=== PATIENT | female | born 1960 | race Caucasian/White ===

== ENCOUNTER 2017-11-29 07:00 | Inpatient (IN) | payer BC ==
[~2017-11-29 07:00] MED LIST: ISOVUE-370 76%-LOCM 1 ML ONE; Iopamidol 370 76% 50 ML VIAL FS ONE
[2017-11-29] MEDS ORDERED: Morphine 4 MG/ML VIAL ONE (07:28)
[2017-11-29] MEDS ORDERED: metroNIDAZOLE 500 MG/100 ML BAG ONE (07:28)
[2017-11-29] MEDS ORDERED: Ondansetron HCl/PF 4 MG/2 ML Vial ONE (07:32)
[2017-11-29 08:02] LABS: #Eosinphils 0.1 thou/uL (0.0-0.7); #Lymphocytes 2.3 thou/uL (1.20-3.40); #Monocytes 0.9 thou/uL (0.11-0.59); #Neutrophils 9.4 thou/uL (1.40-6.50); %Basophils 0.3 % (0.0-1.0); %Eosinophils 0.9 % (0.0-10.0); %Monocytes 6.8 % (0.0-10.0); Hemoglobin 15.6 g/dL (12.0-16.0); Mean Corpuscular HGB CONC 34.2 g/dL (32.0-36.0); Mean Corpuscular Hemoglobin 35.1 pg (27.0-31.0); Mean Platelet Volume 6.3 fL (7.4-10.4); Platelet Count 389 thou/uL (130-400); Red Blood Cell (RBC) Count 4.44 mill/uL (4.20-5.40); White Blood Cell (WBC) Count 12.7 thou/uL (4.8-10.8)
[2017-11-29 08:24] LABS: ALT (SGPT) 10 U/L (8-55); AST (SGOT) 13 U/L (5-34); Albumin 4.3 g/dL (3.5-5.0); Alkaline Phosphatase 93 U/L (40-150); Anion Gap 17 mmol/L (10-20); BUN (Urea Nitrogen) 11 mg/dL (9.8-20.1); Bilirubin, Total 0.5 mg/dL (0.2-1.2); Calc. Creatinine Clearance 0 mL/min (70-130); Calcium 10.2 mg/dL (7.8-10.44); Carbon Dioxide 21 mmol/L (22-29); Chloride 104 mmol/L (98-107); Estimated GFR-MDRD 89; Globulin 3.3 g/dL (2.4-3.5); Glucose 119 mg/dL (70-105); Lipase 18 U/L (8-78); Potassium 4.5 mmol/L (3.5-5.1); Protein, Total 7.6 g/dL (6.0-8.3); Sodium 137 mmol/L (136-145)
[2017-11-29 09:03] LABS: Bilirubin Negative (Negative); Blood, Urine Negative (Negative); Clarity CLEAR (Clear); Glucose, Urine (Dipstick) Negative (Negative); Leukocyte Trace (Negative); Nitrite Negative (Negative); Protein, Urine (Dipstick) Negative (Neg-Trace); Specific Gravity, Urine 1.026 (1.002-1.036); Urobilinogen 0.2 mg/dL (0.2-1.0)
[2017-11-29 09:08] LABS: Bacteria/HPF None Seen HPF (None Seen); Hyaline Casts/LPF 0-3 HYALINE CAST LPF (0-3 Hyaline); Pathc Cast-AUWi Flag 0.13 (0-2.49); RBC/HPF 0-3 HPF (0-3); Squamous Epithelial 0-3 HPF (0-3); WBC/HPF None Seen HPF (0-3)
--- NOTE | 2017-11-29 10:11 | CT ---
CT ABDOMEN AND PELVIS WITH ORAL AND IV CONTRAST: HISTORY: This is a 57-year-old female with abdominal pain which has worsened over the last few days. Left low er quadrant pain. FINDINGS: The lung bases are clear. The liver demonstrates decreased attenuation compared to the spleen consis tent with fatty infiltration. No hepatic mass is seen. The spleen, pancreas, adrenal glands, and ri ght kidney are normal. A small low-density lesion in the left kidney is likely a cyst. No calcified gallstones are seen. No lymphadenopathy is identified. The small bowel loops are not abnormally dilated. There is sigmoid diverticulosis. There is thicken ing of the wall of the sigmoid colon with adjacent air fluid collection measuring 3.5 x 2 x 4 cm and a smaller 1.5 cm fluid collection in the inferior left pelvis. These findings are consistent with di verticular abscesses. The patient is post hysterectomy. A tiny amount of free fluid is seen in the pelvis. There are vascular calcifications without evidence of aneurysmal dilatation of the abdominal aorta. There are degenerative changes in the spine. IMPRESSION: Sigmoid diverticulitis with abscess formation, not amenable to percutaneous drainage. Discussed over the telephone with ER physician, Dr. Bladimir Valenzuela, at 9:45 a.m. POS: [facility]
[2017-11-29] MEDS ORDERED: Ketorolac Tromethamine 30 MG/ML VIAL ONE (11:06)
[2017-11-29] MEDS ORDERED: Ondansetron HCl/PF 4 MG/2 ML Vial IVP PRN (14:27)
[2017-11-29] MEDS ORDERED: Ondansetron ODT 4 MG TAB SL PRN (14:27)
[2017-11-29] MEDS ORDERED: Dextrose 5 %-0.45 % NaCl 1,000 ML IV SCH (14:30)
[2017-11-29] MEDS ORDERED: Acetaminophen 325 MG TAB PO PRN (14:40)
[2017-11-29] MEDS ORDERED: Acetaminophen 650 MG Suppository PR PRN (14:40)
[2017-11-29] MEDS ORDERED: Ondansetron ODT 4 MG TAB PO PRN (14:40)
[2017-11-29] MEDS ORDERED: Bisacodyl 5 MG TAB PO PRN (14:40)
[2017-11-29] MEDS ORDERED: Loperamide HCl 2 MG CAP PO PRN (14:40)
[2017-11-29 14:41] VITALS: BMI 25.5
[2017-11-29] MEDS: Sodium Chloride 0.9% 1,000 ML IV SCH (15:17)
[2017-11-29] MEDS ORDERED: Morphine 4 MG/ML VIAL SLOW IVP PRN (15:45)
--- NOTE | 2017-11-29 16:00 | CON ---
DATE OF CONSULTATION: 11/29/2017 REQUESTING PHYSICIAN: Dr. Bladimir Valenzuela. HISTORY OF PRESENT ILLNESS: A 57-year-old woman with a known history of diverticulosis col i, presented to the Emergency Department. The patient reports recurrent lower abdominal pain since 11/19/2017. She has had previous flareups o f acute diverticulitis, managed conservatively with antibiotics until resolution. Her last hospital admission for acute diverticulitis was in 04/2017. At this time, however, the pain was quite severe and has been unrelenting despite oral analgesics. P atient denies any fevers or chills. She reports passing flatus and having bowel movements, the last bowel movement being this morning. She passed flatus about an hour ago. Denies any nausea or vomiting. PAST MEDICAL HISTORY: Significant for diverticulosis coli, recurrent acute diverticulitis and hyperl ipidemia. PAST SURGICAL HISTORY: Pertinent for hysterectomy and repair of right rotator cuff injury. SOCIAL HISTORY: Patient is . She lives at home with her . She admits to smoking abou t half to 3/4 pack of cigarettes per day and has done so for over 20 years. She admits to occasional intake of ethanol in moderate amounts. She denies any illicit drug abuse. PREHOSPITAL MEDICATIONS: Includes some antihypertensives and cholesterol lowering drugs. She does n ot recall specifics. ALLERGIES: PENICILLIN and SULFA DRUGS. FAMILY HISTORY: Pertinent for diverticulosis coli in her grandmother. She denies any family history of heart disease or diabetes mellitus or cancer. Her last complete colonoscopy was approximately two 2 years ago. She had an attempted colonoscopy last year, which was incomplete due to incomplete bowel prep. REVIEW OF SYSTEMS: A 10-point review of system is essentially unremarkable except for as stated in p ast medical history and chief complaint. PHYSICAL EXAMINATION: GENERAL: This reveals a 57-year-old normally developed woman who is otherwise coherent and interacti ve and appears stated age. The patient is alert and oriented x3, appears to be in moderate acute dis tress secondary to abdominal pain. VITAL SIGNS: Includes blood pressure 137/105, pulse 100, respiratory rate 18, temperature 97.6 degre es Fahrenheit and oxygen saturation 99% on room air. HEENT: Reveals normocephalic and atraumatic. Pupils are equal, round and reactive to light and acco mmodation. Extraocular muscles are intact bilaterally. She has no sclerae icterus present. HEART: Reveals regular rate and rhythm. No murmurs or gallops auscultated. LUNGS: Clear to auscultation bilaterally. Her breathing is regular and unlabored. ABDOMEN: Soft and nondistended. She has moderate tenderness to palpation in the infraumbilical lowe r abdomen. She has mild rebound tenderness present. Liver and spleen are nonpalpable below costal m argins. Bowel sounds in all four quadrants appear normoactive. EXTREMITIES: Reveals 2+ radial and pedal pulses bilaterally. No ankle edema is present. NEUROLOGIC: Reveals no focal deficits present. PERTINENT LABORATORY AND IMAGING FINDINGS: Today includes CBC with 12,700 white blood cells, hemoglo bin 15.6, hematocrit is 45.6 and platelet count is 389,000. Metabolic profile: Sodium 137, potassium is 4.5, chloride is 104, bicarbonate is 21, BUN is 11, crea tinine is 0.68, glucose is 119. Total bilirubin is 0.5, AST and ALT normal at 13 and 10 respectively . Serum lipase is normal at 18. I have personally reviewed the CT scan of the abdomen and pelvis, which reveals diverticulosis coli i nvolving the sigmoid colon. There is also a significant amount of fat stranding involving the mesent lyle of the left colon. There is 4 x 2 x 4 cm fluid collection in the inferior left pelvis with adherent small bowel in the v icinity. No pneumoperitoneum is evident. IMPRESSIONS: 1. Acute diverticulitis with diverticular abscess. 2. History of essential hypertension. RECOMMENDATIONS: 1. Broad-spectrum antibiotic therapy. 2. I have discussed this with the radiologist and it appears that the abscess is not amenable to per cutaneous drainage due to its location. 3. I suspect that this could be successfully treated with IV antibiotic therapy, which can be conver herman to oral treatment once the abdominal pain resolves. There is no acute surgical indication for th is patient at this time. The patient will certainly need an elective sigmoidectomy with primary anas tomosis once the acute diverticulitis has resolved. It will be prudent, however, to obtain a preoper ative colonoscopy if it is possible. 4. I have advised the patient and her that if conservative management fails, this patient mi ght require urgent trip to the operating room for sigmoidectomy with end colostomy. This will be tem porary. The patient and have indicated understanding of information given. I have answered all their questions. Thank you again, Dr. Valenzuela, for allowing me the opportunity to participate in the care of this patient .
[2017-11-29] MEDS: Ketorolac Tromethamine 30 MG/ML VIAL IVP PRN (17:02)
[2017-11-29] MEDS: D5 1/2 NS w/10 mEq KCl 1,000 ML/1,000 ML BAG IV SCH (17:03)
[2017-11-29] MEDS ORDERED: metroNIDAZOLE 500 MG in Premix Bag 1 BAG IVPB SCH (18:00)
[2017-11-29] MEDS: metroNIDAZOLE 500 MG in Premix Bag 1 BAG IVPB SCH (18:20)
[2017-11-29] MEDS: Famotidine 20 MG TAB PO SCH (21:23)
--- NOTE | 2017-11-29 22:17 | PRG ---
DATE OF SERVICE: 11/29/2017 SUBJECTIVE: This is a 57-year-old female with diverticulitis that we were consulted on earlier in . Patient is currently receiving IV antibiotics. She states she has intermittent abdominal nayla n, which is tolerable at this time and ordered pain meds are helping. She vocalized no other complai nts this evening. OBJECTIVE: VITAL SIGNS: Reviewed and stable. GENERAL: The patient is afebrile. Resting in bed, in no acute distress. LUNGS: Breathing is nonlabored. ABDOMEN: Soft without signs of peritonitis or rigidity. ASSESSMENT AND PLAN: As documented in consultation note. Continue care as ordered. Continue to mon itor.
[2017-11-30] MEDS: Ketorolac Tromethamine 30 MG/ML VIAL IVP PRN ×2 (00:50→07:00)
[2017-11-30] MEDS: Sodium Chloride 0.9% 1,000 ML IV SCH ×3 (02:47→23:53)
[2017-11-30] MEDS: metroNIDAZOLE 500 MG in Premix Bag 1 BAG IVPB SCH ×3 (02:51→17:37)
[2017-11-30] MEDS: D5 1/2 NS w/10 mEq KCl 1,000 ML/1,000 ML BAG IV SCH ×3 (06:04→18:56)
--- NOTE | 2017-11-30 06:13 | HP ---
PRIMARY CARE PHYSICIAN: Previously Dr. Sun. PRIMARY RIVER DRIVER: Dr. Pittman. CHIEF COMPLAINT: Abdominal pain. HISTORY OF PRESENT ILLNESS: This is a 57-year-old white female with a known history of recurrent div erticulitis, who was recommended to see surgery and have a partial resection done to prevent recurren ce; however, she has not done this yet. Her last episode was in the summer of this year. The patien t started to have upset stomach and a little bit of bloating in her abdomen around [place], which o ften heralds a diverticulitis episode. This moved to the left lower quadrant and became progressivel y worse. Eventually, she was able to control the pain with [id number] medications and so she c kristofer to the emergency room. In the ER, she had a CT of the abdomen and pelvis with and without contra st showing acute diverticulitis with abscess formation measuring 3.5 x 2 x 4 cm next the sigmoid dive rticulitis. This was not amenable to percutaneous drainage. Dr. Chaney was consulted in the emergen cy room and he evaluated the patient and recommended IV antibiotics, bowel rest, n.p.o. except for ic e chips and meds only. PAST MEDICAL HISTORY: 1. Recurrent sigmoid diverticulitis. 2. Hyperlipidemia. PAST SURGICAL HISTORY: 1. Hysterectomy. 2. Right rotator cuff surgery. SOCIAL HISTORY: She smokes 1 pack per day for the last 30 years. She drinks a small amount of alcoh ol daily, less than 5 drinks per day. No illicit drug use. She lives with her . FAMILY HISTORY: Diverticulitis in grandmother. ALLERGIES: 1. PENICILLIN. 2. SULFA ANTIBIOTICS. 3. ADHESIVE TAPE. CURRENT MEDICATIONS: 1. Probiotic 1 cap once a day. 2. Umce-sbg-zczkvtk pain medicine. REVIEW OF SYSTEMS: Constitutional: No fevers or chills. Eyes: No double vision or blurred vision. ENT: No congestion, drainage, or sore throat. Cardiovascular: No chest pain. No palpitations or racing heart. Pulmonary: No coughing, wheezing, or shortness of breath. Gastrointestinal: See HP I. No nausea or vomiting. No diarrhea. She had a normal bowel movement without blood or mucus yusuf ier today. Genitourinary: No dysuria or hematuria. She does feel pressure when she urinates since, this frequently happens when she has diverticulitis. Musculoskeletal: She has had some left-sided back pain along with left lower quadrant pain. No other muscle aches or joint pains. Skin: No rash es or lesions. Neurologic: No numbness, tingling, or focal weakness. PHYSICAL EXAMINATION: GENERAL: This is a well-developed overweight white female. VITAL SIGNS: Blood pressure 116/70, temperature 97.2, pulse 83, respirations 16, O2 sat 97% on room air. HEENT: Pupils are equal, round, and reactive to light. Extraocular movements are intact. Oropharyn x is clear without lesions, erythema, or exudate. No drying of the mucous membranes. NECK: Supple. No lymphadenopathy. No thyroid nodules or enlargement. No JVD. HEART: Regular rate and rhythm. No murmurs, rubs, or gallops. LUNGS: Clear to auscultation bilaterally. No wheezes, crackles, or rhonchi. ABDOMEN: Soft, tender to palpation in the left lower quadrant with some fullness in the area. No si gnificant guarding or rebound tenderness. She also has some mild tenderness to palpation in the left lumbar musculature, but none on the flank. Normoactive bowel sounds. No hepatosplenomegaly or othe r masses. EXTREMITIES: No clubbing, cyanosis, or edema. SKIN: No rashes or other lesions. NEUROLOGIC: Intact strength in all extremities and she has no facial droop. LABORATORY DATA: White blood cell count 12.7 with 74% neutrophils. Normal hemoglobin and hematocrit . Complete metabolic panel was notable only for carbon dioxide of 21 and glucose of 119. Urinalysis had trace leukocyte esterase, otherwise negative, no bacteria, no wbc's. IMAGING: Abdomen and pelvis CT as above. ASSESSMENT: 1. Acute diverticulitis complicated by abscess formation. We will put patient on IV Cipro and metro nidazole. We will give her p.r.n. Imodium for diarrhea which is a common side effect for her with millie antibiotics. Appreciate Dr. Chaney's assistance with this case and hopefully she will improve wit h the IV antibiotics. We will monitor closely and make sure she does not have evidence of progressio n or peritonitis requiring urgent surgery. Patient will eventually need an outpatient resection of t he bothersome part of her sigmoid. 2. Hypercholesterolemia. We will recommend patient follow up with a new primary care physician for reinstitution of treatment for her hypercholesterolemia. At this point, we will get a fasting specim en to see where is at. 3. Gastrointestinal prophylaxis. Put the patient on Pepcid twice a day. 4. Deep venous thrombosis prophylaxis. Put patient on Lovenox prophylactic dose. 5. Code Status: I did discuss this with the patient. She is a FULL CODE. Should she be incapacita herman, her will be her medical power of meat smoker. His name is Eli Cleaning.
[2017-11-30 06:43] LABS: #Eosinphils 0.1 thou/uL (0.0-0.7); #Lymphocytes 1.7 thou/uL (1.20-3.40); #Monocytes 0.9 thou/uL (0.11-0.59); #Neutrophils 6.1 thou/uL (1.40-6.50); %Basophils 0.1 % (0.0-1.0); %Eosinophils 0.8 % (0.0-10.0); %Monocytes 10.1 % (0.0-10.0); Hemoglobin 11.5 g/dL (12.0-16.0); Mean Corpuscular HGB CONC 33.8 g/dL (32.0-36.0); Mean Platelet Volume 6.7 fL (7.4-10.4); Platelet Count 300 thou/uL (130-400); RBC Distribution Width 11.8 % (11.5-14.5); Red Blood Cell (RBC) Count 3.27 mill/uL (4.20-5.40); White Blood Cell (WBC) Count 8.8 thou/uL (4.8-10.8)
[2017-11-30 06:56] LABS: Anion Gap 10 mmol/L (10-20); BUN (Urea Nitrogen) 8 mg/dL (9.8-20.1); Calc. Creatinine Clearance 91 mL/min (70-130); Calcium 8.9 mg/dL (7.8-10.44); Carbon Dioxide 23 mmol/L (22-29); Cardiac Risk 5.4 (Less than 4.5); Chloride 107 mmol/L (98-107); Cholesterol 178 mg/dl (< 200 Desired); Estimated GFR-MDRD Greater than 90; Glucose 109 mg/dL (70-105); HDL Cholesterol 33 mg/dL (>60 Neg Risk); LDL Cholesterol, Calculated 121 mg/dL; Potassium 4.1 mmol/L (3.5-5.1); Sodium 136 mmol/L (136-145); Triglycerides 122 mg/dL (Less than 150)
[2017-11-30] MEDS: Ondansetron HCl/PF 4 MG/2 ML Vial IVP PRN ×2 (07:03→20:12)
[2017-11-30] MEDS: Famotidine 20 MG TAB PO SCH ×2 (09:11→21:28)
[2017-11-30] MEDS: Enoxaparin Sodium 40 MG/0.4 ML SYRINGE SC SCH (09:11)
[2017-11-30] MEDS ORDERED: Diazepam 2 MG TAB PO PRN (10:01)
[2017-11-30] MEDS: HYDROcodone/Acetaminophen 7.5/325 mg Tablet PO SCH ×3 (11:05→23:51)
[2017-11-30] MEDS: Diazepam 2 MG TAB PO SCH ×2 (14:37→21:28)
--- NOTE | 2017-11-30 18:36 | PDOC.PN ---
- Subjective Encounter Start Date: 11/30/17 Encounter Start Time: 14:30 Patient seen and examined. Abd pain improving. No overnight events - Objective Resuscitation Status: Resuscitation Status FULL:Full Resuscitation MAR Reviewed: Yes Vital Signs & Weight: Vital Signs (12 hours) Temp Pulse Resp BP Pulse Ox 11/30/17 15:22 98.7 F 86 14 120/76 92 L 11/30/17 10:55 97.6 F 87 16 123/74 99 11/30/17 08:00 97.9 F 78 14 98 11/30/17 07:52 97.9 F 78 14 100/64 98 Weight Weight 131 lb I&O: 11/29/17 11/30/17 12/01/17 06:59 06:59 06:59 Intake Total 600 Balance 600 Result Diagrams: 11/30/17 05:40 11/30/17 05:40 Phys Exam - Physical Examination Constitutional: NAD Respiratory: no wheezing, no rales, no rhonchi, clear to auscultation bilateral Cardiovascular: RRR, no rub no heaves/pulsations Gastrointestinal: soft, no distention, positive bowel sounds mild RLQ tend, no rebound Musculoskeletal: no edema Neurological: non-focal, moves all 4 limbs Psychiatric: A&O x 3 Dx/Plan - Plan plan discussed w/ family, continue antibiotics, out of bed/ambulate, DVT proph w /lovenox, DVT proph w/SCDs IMPRESSION: 1. Sepsis due to acute Sigmoid Diverticulitis with Abscess 2. HLD 3. Tobacco dependence - counselled. 4. Chronic Alcohol use PLAN: * Cont Atbx - Cipro/Flagyl * Gen surg following * Cont IVF * NPO * AM labs * Walking program * Pain control with IV Morphine Review of Systems - Review of Systems Respiratory: negative: Cough, Dry, Shortness of Breath, Hemoptysis, SOB with Excertion, Pleuritic Pain, Sputum, Wheezing Cardiovascular: negative: chest pain, palpitations, orthopnea, paroxysmal nocturnal dyspnea, edema, light headedness - Medications/Allergies Allergies/Adverse Reactions: Allergies Allergy/AdvReac Type Severity Reaction Status Date / Time adhesive tape Allergy Verified 05/23/17 23:46 Penicillins Allergy Verified 05/23/17 23:46 Sulfa (Sulfonamide Allergy Verified 05/23/17 23:46 Antibiotics) Medications: Current Medications Acetaminophen (Tylenol) 650 mg PO Q4H PRN PRN Reason: Headache/Fever or Pain Last Admin: 11/30/17 04:48 Dose: 650 mg Hydrocodone Bitart/Acetaminophen ([place] 7.5/325) 1 tab PO Q6HR [facility] Last Admin: 11/30/17 17:38 Dose: 1 tab Hydrocodone Bitart/Acetaminophen ([place] 5/325) 1 tab PO Q4H PRN PRN Reason: Moderate Pain (4-6) Bisacodyl (Dulcolax) 10 mg PO DAILYPRN PRN PRN Reason: Constipation Diazepam (Valium) 2 mg PO Q8HR [facility] Stop: 12/01/17 06:01 Last Admin: 11/30/17 14:37 Dose: 2 mg Enoxaparin Sodium (Lovenox) 40 mg SC 0900 [facility] Last Admin: 11/30/17 09:11 Dose: Not Given Famotidine (Pepcid) 20 mg PO BID [facility] Last Admin: 11/30/17 09:11 Dose: 20 mg Ciprofloxacin/Dextrose 400 mg/ (Device) 200 mls @ 200 mls/hr IVPB 0300,1500 [facility] Last Admin: 11/30/17 14:37 Dose: 200 mls Metronidazole 500 mg/ Device 100 mls @ 100 mls/hr IVPB 0200,1000,1800 [facility] Last Admin: 11/30/17 17:37 Dose: 100 mls Sodium Chloride (Normal Saline 0.9%) 1,000 mls @ 100 mls/hr IV .Q10H [facility] Last Admin: 11/30/17 09:57 Dose: Not Given Potassium Chloride/Dextrose/Sod Cl (D5 1/2 Ns W/10 Meq Kcl) 1,000 ml in 1,000 mls @ 100 mls/hr IV .Q10H [facility] Last Admin: 11/30/17 11:45 Dose: Not Given Ketorolac Tromethamine (Toradol) 15 mg IVP Q6H PRN PRN Reason: Pain Stop: 12/04/17 16:27 Last Admin: 11/30/17 07:00 Dose: 15 mg Loperamide HCl (Imodium) 2 mg PO PRN PRN PRN Reason: Diarrhea/Loose Stools Morphine Sulfate (Morphine) 4 mg SLOW IVP Q4H PRN PRN Reason: Pain Ondansetron HCl (Zofran Odt) 4 mg PO Q6H PRN PRN Reason: Nausea/Vomiting Ondansetron HCl (Zofran) 4 mg IVP Q6H PRN PRN Reason: Nausea/Vomiting Last Admin: 11/30/17 07:03 Dose: 4 mg
--- NOTE | 2017-11-30 20:52 | PRG ---
DATE OF SERVICE: 11/30/2017 The patient this morning is doing "okay." She still reports pain 06/01, which is unchanged from her ad mission. She is though up and ambulatory. She still remains n.p.o. and afebrile. Her vital signs a re stable. She states that her pain is controlled. Her abdomen is soft, flat with no peritoneal sig ns. We will continue this current nonoperative course with IV antibiotics. Once her bowel function returns, we will start her on clear liquid diet. We will reexamine the patient in the morning. The patient was examined by Dr. Chaney this morning during rounds.
--- NOTE | 2017-12-01 02:18 | PRG ---
DATE OF SERVICE: 11/30/2017. SUBJECTIVE: Zeeshan Cleaning is a 57-year-old female that is a surgical consultation for diverticulitis. Patient has been ambulatory today. This evening, she states her pain is marginally improved compare d with previous and that Valium administered by Dr. Chaney earlier today has helped. OBJECTIVE: VITAL SIGNS: Reviewed and stable. The patient is afebrile. She is resting in bed, although I have seen her ambulating in the [place]. Breathing is nonlabored. She is on room air. ABDOMEN: Soft without signs of peritonitis. ASSESSMENT AND PLAN: As documented in daily progress note. Continue care as ordered. Continue to m onitor.
[2017-12-01] MEDS: metroNIDAZOLE 500 MG in Premix Bag 1 BAG IVPB SCH ×3 (02:30→17:22)
[2017-12-01] MEDS: Ondansetron HCl/PF 4 MG/2 ML Vial IVP PRN ×3 (03:00→17:23)
[2017-12-01] MEDS: Diazepam 2 MG TAB PO SCH (05:44)
[2017-12-01] MEDS: HYDROcodone/Acetaminophen 5/325 mg Tablet PO PRN ×2 (05:46→20:45)
[2017-12-01] MEDS: HYDROcodone/Acetaminophen 7.5/325 mg Tablet PO SCH ×3 (05:49→17:24)
[2017-12-01] MEDS: Sodium Chloride 0.9% 1,000 ML IV SCH ×2 (05:52→15:13)
[2017-12-01 06:42] LABS: #Lymphocytes 1.9 thou/uL (1.20-3.40); #Monocytes 0.9 thou/uL (0.11-0.59); #Neutrophils 5.3 thou/uL (1.40-6.50); %Basophils 0.2 % (0.0-1.0); %Eosinophils 0.5 % (0.0-10.0); %Lymphocytes 22.9 % (21.0-51.0); %Monocytes 11.3 % (0.0-10.0); %Neutrophils 65.1 % (42.0-75.0); Hemoglobin 11.6 g/dL (12.0-16.0); Mean Corpuscular HGB CONC 32.5 g/dL (32.0-36.0); Mean Corpuscular Hemoglobin 34.1 pg (27.0-31.0); Mean Platelet Volume 6.7 fL (7.4-10.4); Platelet Count 314 thou/uL (130-400); Red Blood Cell (RBC) Count 3.39 mill/uL (4.20-5.40); White Blood Cell (WBC) Count 8.1 thou/uL (4.8-10.8)
[2017-12-01 07:27] LABS: ALT (SGPT) 7 U/L (8-55); AST (SGOT) 10 U/L (5-34); Albumin 3.3 g/dL (3.5-5.0); Alkaline Phosphatase 68 U/L (40-150); Anion Gap 10 mmol/L (10-20); BUN (Urea Nitrogen) 5 mg/dL (9.8-20.1); Bilirubin, Total 0.3 mg/dL (0.2-1.2); Calc. Creatinine Clearance 84 mL/min (70-130); Calcium 8.9 mg/dL (7.8-10.44); Carbon Dioxide 24 mmol/L (22-29); Chloride 108 mmol/L (98-107); Estimated GFR-MDRD 88; Globulin 2.2 g/dL (2.4-3.5); Glucose 99 mg/dL (70-105); Magnesium 1.7 mg/dL (1.6-2.6); Phosphorus 3.1 mg/dL (2.3-4.7); Potassium 4.2 mmol/L (3.5-5.1); Protein, Total 5.5 g/dL (6.0-8.3); Sodium 138 mmol/L (136-145)
[2017-12-01] MEDS: D5 1/2 NS w/10 mEq KCl 1,000 ML/1,000 ML BAG IV SCH ×2 (07:56→17:23)
[2017-12-01] MEDS: Famotidine 20 MG TAB PO SCH ×2 (08:55→20:46)
[2017-12-01] MEDS: Enoxaparin Sodium 40 MG/0.4 ML SYRINGE SC SCH (08:55)
[2017-12-01] MEDS: Diazepam 2 MG TAB PO PRN ×2 (12:07→20:45)
--- NOTE | 2017-12-01 13:04 | PDOC.PN ---
- Subjective Encounter Start Date: 12/01/17 Encounter Start Time: 12:00 Patient seen and examined. Had BM last night. Still has abd pain. NPO. No overnight events - Objective Resuscitation Status: Resuscitation Status FULL:Full Resuscitation MAR Reviewed: Yes Vital Signs & Weight: Vital Signs (12 hours) Temp Pulse Resp BP Pulse Ox 12/01/17 11:40 97.8 F 88 14 118/76 99 12/01/17 07:45 98.2 F 84 18 97/61 99 12/01/17 04:00 98.3 F 85 20 98/63 99 Weight Weight 131 lb I&O: 11/30/17 12/01/17 12/02/17 06:59 06:59 06:59 Intake Total 600 2880 Balance 600 2880 Result Diagrams: 12/01/17 05:27 12/01/17 05:27 Phys Exam - Physical Examination Constitutional: NAD Respiratory: no wheezing, no rhonchi Cardiovascular: RRR, no rub Gastrointestinal: soft, positive bowel sounds LLQ tend +, No guarding/rigidity Neurological: moves all 4 limbs Dx/Plan - Plan DVT proph w/lovenox, DVT proph w/SCDs IMPRESSION: 1. Sepsis due to acute Sigmoid Diverticulitis with Abscess - on Cipro/Flagyl, Gen surg following 2. HLD 3. Tobacco dependence - counselled. 4. Chronic Alcohol use PLAN: * Cont Atbx * Cont IVF * NPO * Walking program * Pain control with IV Morphine/[place] Review of Systems - Review of Systems Respiratory: negative: Cough, Dry, Shortness of Breath, Hemoptysis, SOB with Excertion, Pleuritic Pain, Sputum, Wheezing Cardiovascular: negative: chest pain, palpitations, orthopnea, paroxysmal nocturnal dyspnea, edema, light headedness - Medications/Allergies Allergies/Adverse Reactions: Allergies Allergy/AdvReac Type Severity Reaction Status Date / Time adhesive tape Allergy Verified 05/23/17 23:46 Penicillins Allergy Verified 05/23/17 23:46 Sulfa (Sulfonamide Allergy Verified 05/23/17 23:46 Antibiotics) Medications: Current Medications Acetaminophen (Tylenol) 650 mg PO Q4H PRN PRN Reason: Headache/Fever or Pain Last Admin: 11/30/17 04:48 Dose: 650 mg Hydrocodone Bitart/Acetaminophen ([place] 7.5/325) 1 tab PO Q6HR [facility] Last Admin: 12/01/17 11:40 Dose: 1 tab Hydrocodone Bitart/Acetaminophen ([place] 5/325) 1 tab PO Q4H PRN PRN Reason: Moderate Pain (4-6) Last Admin: 12/01/17 05:46 Dose: 1 tab Bisacodyl (Dulcolax) 10 mg PO DAILYPRN PRN PRN Reason: Constipation Diazepam (Valium) 2 mg PO Q8H PRN PRN Reason: Anxiety Last Admin: 12/01/17 12:07 Dose: 2 mg Enoxaparin Sodium (Lovenox) 40 mg SC 0900 [facility] Last Admin: 12/01/17 08:55 Dose: 40 mg Famotidine (Pepcid) 20 mg PO BID [facility] Last Admin: 12/01/17 08:55 Dose: 20 mg Ciprofloxacin/Dextrose 400 mg/ (Device) 200 mls @ 200 mls/hr IVPB 0300,1500 [facility] Last Admin: 12/01/17 02:30 Dose: 200 mls Metronidazole 500 mg/ Device 100 mls @ 100 mls/hr IVPB 0200,1000,1800 [facility] Last Admin: 12/01/17 10:27 Dose: 100 mls Sodium Chloride (Normal Saline 0.9%) 1,000 mls @ 100 mls/hr IV .Q10H [facility] Last Admin: 12/01/17 05:52 Dose: 1,000 mls Potassium Chloride/Dextrose/Sod Cl (D5 1/2 Ns W/10 Meq Kcl) 1,000 ml in 1,000 mls @ 100 mls/hr IV .Q10H [facility] Last Admin: 12/01/17 07:56 Dose: 1,000 mls Ketorolac Tromethamine (Toradol) 15 mg IVP Q6H PRN PRN Reason: Pain Stop: 12/04/17 16:27 Last Admin: 11/30/17 07:00 Dose: 15 mg Loperamide HCl (Imodium) 2 mg PO PRN PRN PRN Reason: Diarrhea/Loose Stools Morphine Sulfate (Morphine) 4 mg SLOW IVP Q4H PRN PRN Reason: Pain Ondansetron HCl (Zofran Odt) 4 mg PO Q6H PRN PRN Reason: Nausea/Vomiting Ondansetron HCl (Zofran) 4 mg IVP Q6H PRN PRN Reason: Nausea/Vomiting Last Admin: 12/01/17 11:39 Dose: 4 mg Saccharomyces Boulardii (Florastor) 250 mg PO HS [facility]
--- NOTE | 2017-12-01 17:57 | PRG ---
DATE OF SERVICE: 12/01/2017. SUBJECTIVE: Ms. Cleaning is awake and alert today. She reports 6-7/10 abdominal pain, which is essenti ally unchanged from yesterday. She denies any nausea or vomiting. She reports passing lots of flatu s, but has not had any bowel movement. She denies any fevers or chills. She is having adequate urinary output. OBJECTIVE: VITAL SIGNS: Today includes blood pressure 98/63, pulse 85, respiratory rate 20. Maximum temperatur e in the last 24 hours is 100.1 degrees Fahrenheit, oxygen saturation is 99% on room air. HEENT: Reveals normocephalic and atraumatic. HEART: Reveals regular rate and rhythm. No murmurs or gallops auscultated. LUNGS: Clear to auscultation bilaterally. Breathing is regular and unlabored. ABDOMEN: Soft and nondistended. She has moderate tenderness to palpation with no rebound tenderness present. Liver and spleen are nonpalpable below costal margin. EXTREMITIES: Reveals 2+ radial and pedal pulses bilaterally. No ankle edema is present. NEUROLOGIC: Reveals no focal deficits present. LABORATORY DATA: Pertinent laboratory findings today includes a CBC with 8100 white blood cells, hem oglobin 11.6, hematocrit is 35.6, platelet count is 314,000. Metabolic profile: Sodium 138, potassi um is 4.2, chloride is 108, bicarbonate 24, BUN is 5, creatinine is 0.69, glucose is 99, magnesium 1. 7, phosphorus 3.1. IMPRESSION: 1. Acute diverticulitis with small diverticular abscess. The patient is hemodynamically stable. 2. Acute hypomagnesemia. PLAN: 1. Continue broad-spectrum antibiotic therapy and clear liquid diet. 2. Increase activity as tolerated. 3. Correct the abnormal electrolytes. 4. There remains no acute surgical indication for this patient at this time. 5. We will continue with conservative medical management and reserve surgical intervention, which wo uld include sigmoidectomy with end colostomy for intractability of failure with conservative manageme nt. The patient indicates understanding of the information provided to her in the presence of her .
[2017-12-01] MEDS: Saccharomyces boulardii 250 MG CAP PO SCH (20:46)
--- NOTE | 2017-12-01 23:23 | PRG ---
DATE OF SERVICE: 12/01/2017 SUBJECTIVE: This is a 57-year-old female who the surgical team is following for diverticulitis. The patient reports the pain is improved. She has been ambulatory and out of bed. OBJECTIVE: VITAL SIGNS: Reviewed and stable. GENERAL: The patient is afebrile, resting in bed in no acute distress. LUNGS: Breathing is nonlabored. ABDOMEN: Soft without signs of guarding, rigidity, or peritonitis. ASSESSMENT AND PLAN: As documented in daily progress note. Continue care as ordered. Continue to m onitor.
[2017-12-02] MEDS: HYDROcodone/Acetaminophen 7.5/325 mg Tablet PO SCH ×5 (01:00→23:55)
[2017-12-02] MEDS: metroNIDAZOLE 500 MG in Premix Bag 1 BAG IVPB SCH ×2 (01:18→10:22)
[2017-12-02] MEDS: Ondansetron HCl/PF 4 MG/2 ML Vial IVP PRN ×4 (01:22→18:01)
[2017-12-02] MEDS: D5 1/2 NS w/10 mEq KCl 1,000 ML/1,000 ML BAG IV SCH ×2 (06:30→13:10)
[2017-12-02] MEDS: Famotidine 20 MG TAB PO SCH ×2 (08:32→21:20)
[2017-12-02] MEDS: Enoxaparin Sodium 40 MG/0.4 ML SYRINGE SC SCH (08:32)
[2017-12-02] MEDS: Diazepam 2 MG TAB PO PRN ×2 (12:46→21:28)
--- NOTE | 2017-12-02 16:56 | PRG ---
DATE OF SERVICE: 12/02/2017 SUBJECTIVE: Ms. Cleaning is a 57-year-old woman admitted on 11/29/2017 with acute diverticulitis and sm all diverticular abscess. Conservative management was elected including initial bowel rest and IV an tibiotic therapy. The patient reports significant improvement with respect to her abdominal pain, wh ich is now 4/7 in contrast to 9/10 on admission. She is tolerating clear liquid diet, passing flatus , and having loose bowel movements. She ambulates with minimal difficulty. She has remained afebril e for previous 48 hours. OBJECTIVE: VITAL SIGNS: Today includes blood pressure 106/68, pulse 79, respiratory rate is 18, maximum tempera ture in the last 24 hours is 98.2 degrees Fahrenheit, oxygen saturation is 99% on room air. HEART: Reveals regular rate and rhythm. No murmurs or gallops auscultated. LUNGS: Clear to auscultation bilaterally. Breathing is regular and unlabored. ABDOMEN: Soft and nondistended. She has moderate lower abdominal tenderness to palpation with no gr oss rebound tenderness present. Bowel sounds in all four quadrants appear normoactive. IMPRESSION: Acute diverticulitis with small diverticular abscess, improving. PLAN: Continue with IV antibiotic therapy. We will switch this to oral intake effective tomorrow as long as abdominal pain is not exacerbated by eating. The patient will be seen by Dr. Casas, her primary surgeon, and outpatient antibiotic therapy will be coordinated through his care.
--- NOTE | 2017-12-02 17:28 | PDOC.PN ---
- Subjective Encounter Start Date: 12/02/17 Encounter Start Time: 17:26 Patient seen at bedside. No overnight events, states pain is much improved. Passing flatus. - Objective Resuscitation Status: Resuscitation Status FULL:Full Resuscitation Vital Signs & Weight: Vital Signs (12 hours) Temp Pulse Resp BP Pulse Ox 12/02/17 17:23 97.9 F 87 20 110/61 100 12/02/17 16:15 97.9 F 87 20 110/61 100 12/02/17 13:34 98.2 F 79 18 106/68 99 12/02/17 08:58 97.9 F 73 16 112/71 98 12/02/17 08:00 97.9 F 73 16 112/71 98 Weight Weight 131 lb I&O: 12/01/17 12/02/17 12/03/17 06:59 06:59 06:59 Intake Total 2880 1402 1442 Balance 2880 1402 1442 Result Diagrams: 12/01/17 05:27 12/01/17 05:27 Phys Exam - Physical Examination Constitutional: NAD HEENT: moist MMs Neck: no JVD Respiratory: no rales Cardiovascular: no significant murmur Gastrointestinal: soft Mild tenderness in LLQ Musculoskeletal: pulses present Neurological: moves all 4 limbs Psychiatric: A&O x 3 Dx/Plan (1) Diverticulitis large intestine Code(s): K57.32 - DVTRCLI OF LG INT W/O PERFORATION OR ABSCESS W/O BLEEDING Status: Acute Qualifiers: Diverticulitis complication: with abscess - Plan cont current plan of care, continue antibiotics, out of bed/ambulate * Continue with PO ABX (Ciprofloxacin and Flagyl) * Clear Liquid Diet ( Advance per GS) * OOB as tolerates * Will eventual need sigmoidectomy once acute episode resolves
[2017-12-02] MEDS: Ciprofloxacin 500 MG TAB PO SCH (21:19)
[2017-12-02] MEDS: metroNIDAZOLE 500 MG TAB PO SCH (21:19)
[2017-12-02] MEDS: Saccharomyces boulardii 250 MG CAP PO SCH (21:20)
[2017-12-03] MEDS: HYDROcodone/Acetaminophen 7.5/325 mg Tablet PO SCH ×2 (05:30→13:30)
[2017-12-03] MEDS: Ciprofloxacin 500 MG TAB PO SCH (06:00)
[2017-12-03] MEDS: metroNIDAZOLE 500 MG TAB PO SCH ×2 (08:05→16:28)
[2017-12-03] MEDS: Famotidine 20 MG TAB PO SCH (08:05)
[2017-12-03] MEDS: Enoxaparin Sodium 40 MG/0.4 ML SYRINGE SC SCH (08:05)
[2017-12-03] MEDS: Diazepam 2 MG TAB PO PRN (12:01)
--- NOTE | 2017-12-03 15:33 | PRG ---
DATE OF SERVICE: 12/03/2017 SUBJECTIVE: Ms. Cleaning is previously known to me, readmitted with diverticulitis with abscesses, it i s not a minimal percutaneous drainage. The patient feels much better today on IV antibiotics, tolera ting diet without difficulty. PHYSICAL EXAMINATION: VITAL SIGNS: She is afebrile. Vital signs are stable. ABDOMEN: Soft, minimally tender, nondistended, no guarding or peritoneal signs. LABORATORY DATA: Her white cell count is normal at 8. No significant left shift. Creatinine 0.69. ASSESSMENT: Active diverticulitis improved symptom robertson, but she does have non drainable abscess. PLAN: Options would be continue inpatient to the surgery which would be colectomy with ileostomy lat er on this week or continue oral antibiotics for a few weeks and then do as an outpatient. She elect ed to do it as an outpatient. She can be discharged home on either Augmentin or Levaquin, [place], an d she needs to see me back in 2 weeks in the office to plan for her elective procedure.
[2017-12-03 16:11] VITALS: BP 123/77; TEMP 98.2
--- NOTE | 2017-12-03 17:32 | DIS ---
DATE OF ADMISSION: 11/29/2017 DATE OF DISCHARGE: 12/03/2017 DISCHARGE DISPOSITION: Home. FOLLOWUP: With Gastroenterology, Dr. Pittman in 1 week. Please note that patient does not have a [facility] physician. She will follow up with Dr. Pittman. The patient was seen and examined on the day of discharge, denies any new complaints. No chest pain, shortness of breath, palpitations. DISCHARGE MEDICATIONS: Levaquin 500 mg daily for 14 days, Flagyl 500 mg three times daily for 14 day s, Zofran as needed, and probiotic daily. BRIEF HOSPITAL COURSE: The patient is a 57-year-old female with recurrent sigmoid diverticulitis, pr esented to the hospital with abdominal pain. Her workup was consistent with sepsis secondary to acut e diverticulitis with abscess formation. CT scan of the abdomen was consistent with 3.5 x 2 x 4 cm a bscess. There was also smaller 1.5 cm fluid collection in the inferior left pelvis. The patient was seen by General Surgery, Dr. Chaney and Dr. Casas. The patient was conservatively managed. Her sy mptoms have significantly improved. She will continue Levaquin and Flagyl along with probiotic. She was counseled to quit smoking. FINAL DIAGNOSES: 1. Sepsis due to acute sigmoid diverticulitis with abscess formation. On conservative management. The patient will follow up with General Surgery as outpatient for partial colectomy. 2. Hyperlipidemia. 3. Tobacco dependence. 4. Chronic alcohol use. 5. Mild metabolic acidosis on admission, resolved. 6. Chronic kidney disease stage 2. 7. Mild chronic anemia. 8. Leukocytosis on admission secondary to acute diverticulitis. Plan of care was discussed with the patient in detail. She stated understanding.
== END 2017-12-03 17:24 | disposition home or self-care (01) | DRG 391 ==
LOC: ERS 07:00 → SJJU 10:50
PROVIDERS: ADMIT Emergency Medicine; ATTEND Emergency Medicine
DX: K57.20 Diverticulitis of large intestine with perforation and abscess without bleeding (principal); A41.9 Sepsis, unspecified organism; E87.2 Acidosis; E83.42 Hypomagnesemia; F17.210 Nicotine dependence, cigarettes, uncomplicated; N18.2 Chronic kidney disease, stage 2 (mild); D64.9 Anemia, unspecified; E78.00 Pure hypercholesterolemia, unspecified
CPT/HCPCS: 36415; 74177; 80048; 80053; 80061; 81003; 81015; 83690; 83735; 84100; 85025; 90471; 90732; 96365; 96366; 96367; 96375; G0009; J0744; J1650; J1885; J1956; J2270; J2405; Q0162

== ENCOUNTER 2017-12-19 15:41 | Outpatient (CLI) | payer BC | END 2017-12-19 15:42 | disposition home or self-care (01) | LOC: BICMAMMO 15:41 | PROVIDERS: ATTEND Obstetrics & Gynecology | DX: Z12.31 Encounter for screening mammogram for malignant neoplasm of breast (principal); Z13.820 Encounter for screening for osteoporosis; M85.80 Other specified disorders of bone density and structure, unspecified site | CPT/HCPCS: 77063; 77067; 77080 ==

== ENCOUNTER 2017-12-28 12:30 | Inpatient (IN) | payer BC ==
[2018-01-03] MEDS ORDERED: Midazolam HCl 2 mg/2 ml Vial ONE (09:58)
[2018-01-03] MEDS ORDERED: Dexamethasone 4 mg/ml Vial ONE (09:58)
[2018-01-03] MEDS ORDERED: Fentanyl 100 MCG/2 ML VIAL ONE ×2 (09:58→10:04)
[2018-01-03] MEDS ORDERED: HYDROmorphone 0.5 MG/0.5 ML SYRINGE ONE ×5 (10:04→14:11)
[2018-01-03] MEDS ORDERED: metroNIDAZOLE 500 MG/100 ML BAG ONE (10:06)
[2018-01-03] MEDS ORDERED: Levofloxacin 500 mg/D5W 100 ml Premix Bag ONE (10:06)
[2018-01-03] MEDS ORDERED: Bupivacaine PF 0.5% 30 ML VIAL ONE (11:44)
[2018-01-03] MEDS ORDERED: Bupivacaine HCl 0.5%/Epinephrine 1:200,000/PF 30 ml Vial ONE (11:44)
[2018-01-03] MEDS ORDERED: Ondansetron PF 4 MG/2 ML Vial ONE (13:12)
[2018-01-03] MEDS ORDERED: Metoclopramide HCl 10 MG/2 ML VIAL ONE (13:12)
[2018-01-03] MEDS ORDERED: ePHEDrine/0.9% NaCl/PF SYRINGE 50 mg/10 ml ONE (13:12)
[2018-01-03] MEDS ORDERED: Dexamethasone 20 MG/5 ML VIAL ONE (13:12)
[2018-01-03] MEDS ORDERED: Glycopyrrolate 0.2 MG/ML 5 ML SYRINGE ONE (13:12)
[2018-01-03] MEDS ORDERED: PROPOFOL 200 MG/20 ML VIAL ONE (13:12)
[2018-01-03] MEDS ORDERED: PHENYLEPHRINE-NS 100 MCG/ML 10 ML SYRINGE ONE (13:12)
[2018-01-03] MEDS ORDERED: Lidocaine 1% PF 5 ML VIAL ONE (13:12)
[2018-01-03] MEDS ORDERED: Ondansetron HCl/PF 4 MG/2 ML Vial IVP PRN (13:21)
[2018-01-03] MEDS ORDERED: Promethazine HCl 25 MG/ML VIAL SLOW IVP PRN (13:21)
[2018-01-03] MEDS ORDERED: HYDROmorphone 2 MG/ML VIAL SLOW IVP PRN (13:21)
[2018-01-03] MEDS ORDERED: Ketorolac Tromethamine 30 MG/ML VIAL IVP PRN (13:21)
[2018-01-03] MEDS ORDERED: Promethazine HCl 25 MG/ML VIAL IM PRN ×2 (13:21→15:12)
[2018-01-03] MEDS ORDERED: Ketorolac Tromethamine 30 MG/ML VIAL ONE (13:33)
[2018-01-03] MEDS ORDERED: D5 1/2 NS w/20 mEq KCL 1,000 ML ONE (14:39)
[2018-01-03] MEDS ORDERED: hydrALAZINE 20 MG/ML VIAL SLOW IVP PRN (15:12)
[2018-01-03] MEDS ORDERED: Ondansetron PF 4 MG/2 ML Vial IVP PRN (15:12)
[2018-01-03] MEDS ORDERED: Fentanyl 100 MCG/2 ML VIAL SLOW IVP PRN (15:12)
[2018-01-03] MEDS: D5 1/2 NS w/20 mEq KCL 1,000 ML IV SCH (16:45)
[2018-01-03] MEDS: Fentanyl 100 MCG/2 ML VIAL SLOW IVP PRN ×2 (16:48→21:05)
[2018-01-03] MEDS: metroNIDAZOLE 500 MG in Premix Bag 1 BAG IVPB SCH ×2 (16:49→21:12)
[2018-01-03] MEDS: Acetaminophen 1,000 MG in Premix Bag 1 BAG IVPB SCH (18:39)
[2018-01-03 20:07] VITALS: BMI 23.8
[2018-01-03] MEDS: Ketorolac Tromethamine 30 MG/ML VIAL IVP PRN (20:10)
[2018-01-03] MEDS ORDERED: FLU VACC QS2017-18 36 mo. & older 0.5 ML SYRINGE IM ONE (20:45)
[2018-01-03] MEDS: Famotidine 20 MG TAB PO SCH (21:11)
[2018-01-03] MEDS: Enoxaparin Sodium 40 MG/0.4 ML SYRINGE SC SCH (21:11)
[2018-01-04] MEDS: Famotidine/PF 20 mg/2ml Vial SLOW IVP SCH ×3 (00:36→20:14)
[2018-01-04] MEDS: Acetaminophen 1,000 MG in Premix Bag 1 BAG IVPB SCH ×3 (00:38→12:21)
[2018-01-04] MEDS: metroNIDAZOLE 500 MG in Premix Bag 1 BAG IVPB SCH (04:57)
[2018-01-04 05:29] LABS: #Lymphocytes 1.2 thou/uL (1.20-3.40); #Neutrophils 11.8 thou/uL (1.40-6.50); %Lymphocytes 8.4 % (21.0-51.0); %Monocytes 6.9 % (0.0-10.0); %Neutrophils 84.6 % (42.0-75.0); Hemoglobin 9.7 g/dL (12.0-16.0); Mean Corpuscular Hemoglobin 33.6 pg (27.0-31.0); Mean Platelet Volume 7.1 fL (7.4-10.4); Platelet Count 320 thou/uL (130-400); RBC Distribution Width 12.4 % (11.5-14.5); Red Blood Cell (RBC) Count 2.88 mill/uL (4.20-5.40)
[2018-01-04 05:44] LABS: Anion Gap 12 mmol/L (10-20); BUN (Urea Nitrogen) 6 mg/dL (9.8-20.1); Calc. Creatinine Clearance 86 mL/min (70-130); Carbon Dioxide 22 mmol/L (22-29); Chloride 104 mmol/L (98-107); Estimated GFR-MDRD Greater than 90; Glucose 168 mg/dL (70-105); Potassium 4.8 mmol/L (3.5-5.1); Sodium 133 mmol/L (136-145)
[2018-01-04] MEDS: Ketorolac Tromethamine 30 MG/ML VIAL IVP PRN ×3 (08:44→23:50)
[2018-01-04] MEDS: Famotidine 20 MG TAB PO SCH ×2 (08:45→20:42)
[2018-01-04] MEDS: D5 1/2 NS w/20 mEq KCL 1,000 ML IV SCH (08:47)
[2018-01-04] MEDS: Fentanyl 100 MCG/2 ML VIAL SLOW IVP PRN ×2 (10:48→15:13)
--- NOTE | 2018-01-04 13:46 | PDOC.GSPN ---
Surgery Progress Note: Subj - Subjective Patient reports: tolerating liquids well (no nausea) Surgery Progress Note: Obj - Vital signs Vital signs: Vital Signs - Most Recent Temp Pulse Resp BP Pulse Ox 98.2 F 78 18 99/55 L 100 01/04/18 11:49 01/04/18 11:49 01/04/18 11:49 01/04/18 11:49 01/04/18 11:49 - Physical Exam General: no distress Cardiovascular: regular rate and rhythm Respiratory: clear to auscultation Abdomen: soft, non tender, other (ostomy with stool) Wound: healing well Surgery Progress Note: Results - Labs Result Diagrams: 01/04/18 04:23 01/04/18 04:23 Lab results: Laboratory Results - last 24 hr 01/04/18 01/04/18 04:23 04:23 WBC 14.0 H RBC 2.88 L Hgb 9.7 L Hct 29.3 L MCV 102.0 H MCH 33.6 H MCHC 33.0 RDW 12.4 Plt Count 320 MPV 7.1 L Neutrophils % 84.6 H Lymphocytes % 8.4 L Monocytes % 6.9 Eosinophils % 0.0 Basophils % 0.0 Neutrophils # 11.8 H Lymphocytes # 1.2 Monocytes # 1.0 H Eosinophils # 0.0 Basophils # 0.0 Sodium 133 L Potassium 4.8 Chloride 104 Carbon Dioxide 22 Anion Gap 12 BUN 6 L Creatinine 0.63 Estimated GFR (MDRD) Greater than 90 Glucose 168 H Calcium 9.0 Surgery Progress Note: A/P - Problem (1) Diverticulitis Current Visit: Yes Code(s): K57.92 - DVTRCLI OF INTEST, PART UNSP, W/O PERF OR ABSCESS W/O BLEED Status: Acute Assessment and Plan: POD 1 left colectomy and anastamosis with diverting ileostomy. full liquids starting tonight. home Sunday if tolerates liquids. Rx's already sent to her pharmacy
--- NOTE | 2018-01-04 15:17 | OP ---
DATE OF PROCEDURE: 01/03/2018 PREOPERATIVE DIAGNOSIS: Acute on chronic left colon diverticulitis with phlegmon. POSTOPERATIVE DIAGNOSIS: Acute on chronic left colon diverticulitis with phlegmon. PROCEDURES: Laparoscopic converted to open left colectomy with splenic flexure mobilization, low pel brown anastomosis, diverting loop ileostomy. SURGEON: Eugene Casas M.D. ANESTHESIA: General. ESTIMATED BLOOD LOSS: 200 mL. COMPLICATIONS: None. FINDINGS: Significant phlegmonous changes in the left lower quadrant involving the small intestine. INDICATIONS: The patient is a 57-year-old female who has had multiple admissions for diverticulitis. She has been on antibiotics for the last few months for diverticulitis that will improve. She had a small abscess that was not amenable to percutaneous drainage. Decision was made to proceed with co lectomy knowing the risk of potential need for colostomy versus ileostomy after resection and she gav e consent. She underwent mechanical and antibiotic bowel prep. PROCEDURE IN DETAIL: The patient had preoperative placement of tap block in her abdomen over abdomin al wall, taken to the operating room and laid supine on the operating table. After general anestheti c was obtained, a Mariee was placed. She was placed in lithotomy position and her abdomen and perineu m were prepped and draped in a sterile fashion. Left subcostal 5-mm Optiview trocar was placed in th e usual fashion without injury. High-flow pneumoperitoneum was obtained. Two 5-mm ports were placed in the right lower abdomen. Her small bowel was not able to be brought out of the pelvis. Multiple loops of small bowel stuck to her sigmoid colon. Decision was made to open. Midline incision was m antonia from pubis to above the umbilicus. Cautery was used to dissect down into the abdominal cavity. Bookwalter retractor was placed. The left colon was mobilized along the white line of [place]. The le ft ureter was found and excluded from the dissection. There were two loops of small intestine that h ad to be dissected off the right side of the sigmoid colon. The small intestine was found to have no obvious full thickness injury. The colon in this area was severely inflamed and had an internal loo p that was adhesed to itself. Dissection was taken down into the pelvis down in the upper rectum. A circumferential dissection was performed and a contour staple was fired across the upper rectum. Th e mesentery for the sigmoid colon was taken using the impact LigaSure. Again, the left ureter had be en found and excluded from the dissection. The left colon, splenic flexure colon and distal transver se colon were all mobilized in the usual fashion. This allowed the distal transverse colon to fall d own into the pelvis under no tension. The colon specimen was sent to path for final diagnosis. [place] tim was made on the splenic flexure of colon and a 31 anvil was passed proximally and its sharp pin placed out the side of the distal transverse colon just distal to this was where the proximal staple line was to remove the left colon. This colon was able to be brought down in the pelvis under no ten marvin. The base of the EEA stapler was brought up through the anus and sharp pin brought out on the a ntimesenteric surface of the colon below. The anvil was connected to the pin, it was tightened down into the green zone and fired thus forming a low pelvic anastomosis. There were two good rings of ti ssue obtained. Because of the severe inflammation in the abdomen, decision was made to divert with l oop ileostomy. A distance of approximately 15 cm proximal to the ileocecal valve, a loop of intestin e was brought through. A cruciate incision was made in the fascia. An elliptical incision made on t he skin in the right lower quadrant held outside the abdomen using a Bhavani. All instrument counts, needle counts, and lap counts were correct. The abdomen was irrigated using sterile solution until returns are clear. There is no ongoing bleeding. Midline fascia closed using #1 PDS from the top an d the bottom and tied in the middle. Subcutaneous tissues were irrigated. The skin was closed using interrupted 3-0 Vicryl, running 4-0 Monocryl, and Dermabond. The other laparoscopic port sites were closed using 4-0 Monocryl. The ostomy was then matured in the usual fashion using 3-0 Vicryl suture and ostomy device was placed. The patient was en route to recovery in stable condition. All instru ment counts, needle counts, and lap counts were correct.
[2018-01-04] MEDS: Enoxaparin Sodium 40 MG/0.4 ML SYRINGE SC SCH (20:42)
[2018-01-04] MEDS: HYDROcodone/Acetaminophen 10/325 mg Tablet PO PRN (20:42)
[2018-01-05] MEDS: HYDROcodone/Acetaminophen 10/325 mg Tablet PO PRN ×5 (01:51→21:06)
[2018-01-05] MEDS: Famotidine 20 MG TAB PO SCH ×2 (08:45→21:05)
[2018-01-05] MEDS: Famotidine/PF 20 mg/2ml Vial SLOW IVP SCH (10:12)
[2018-01-05] MEDS: Enoxaparin Sodium 40 MG/0.4 ML SYRINGE SC SCH (21:05)
[2018-01-06] MEDS: HYDROcodone/Acetaminophen 10/325 mg Tablet PO PRN ×5 (01:51→21:11)
[2018-01-06] MEDS: Famotidine 20 MG TAB PO SCH ×2 (09:19→21:11)
[2018-01-06] MEDS ORDERED: Sodium Chloride 0.9% 500 ML IV SCH (17:00)
[2018-01-06] MEDS: Enoxaparin Sodium 40 MG/0.4 ML SYRINGE SC SCH (21:11)
[2018-01-07] MEDS: Fentanyl 100 MCG/2 ML VIAL SLOW IVP PRN (00:03)
[2018-01-07] MEDS: HYDROcodone/Acetaminophen 10/325 mg Tablet PO PRN ×2 (02:55→06:58)
[2018-01-07] MEDS: Famotidine 20 MG TAB PO SCH (08:50)
[2018-01-07 08:54] LABS: #Eosinphils 0.2 thou/uL (0.0-0.7); #Lymphocytes 1.9 thou/uL (1.20-3.40); #Monocytes 1.5 thou/uL (0.11-0.59); %Basophils 0.1 % (0.0-1.0); %Eosinophils 1.3 % (0.0-10.0); %Lymphocytes 15.1 % (21.0-51.0); %Neutrophils 71.5 % (42.0-75.0); Hemoglobin 9.8 g/dL (12.0-16.0); Mean Corpuscular HGB CONC 33.8 g/dL (32.0-36.0); Mean Corpuscular Hemoglobin 34.4 pg (27.0-31.0); Mean Platelet Volume 6.7 fL (7.4-10.4); Platelet Count 372 thou/uL (130-400); RBC Distribution Width 12.3 % (11.5-14.5); Red Blood Cell (RBC) Count 2.84 mill/uL (4.20-5.40); White Blood Cell (WBC) Count 12.6 thou/uL (4.8-10.8)
[2018-01-07] MEDS ORDERED: traMADol HCl 50 MG TAB PO PRN (10:39)
[2018-01-07] MEDS: traMADol HCl 50 MG TAB PO PRN ×2 (13:39→13:57)
[2018-01-07 16:07] VITALS: BP 108/71; TEMP 98.6
--- NOTE | 2018-01-08 14:24 | DIS ---
ADMITTING DIAGNOSIS: Chronic diverticulitis. PROCEDURES: Laparoscopic left colectomy with diverting ileostomy by Dr. Casas without complication . CONDITION AT DISCHARGE: Improved. STAFF: Dr. Eugene Casas. HOSPITAL COURSE: The patient was admitted to the hospital for postop, on a liquid diet, ambulatory o n postop day #1. Slowly her diet was advanced to full liquid diet. On the day of discharge, she is tolerating full liquids. Her pain is controlled. Ostomy teaching had been performed. She was stabl e for discharge. Discharged home on tramadol, [place] and Zofran. She will follow up with me in a few weeks in the offi ce.
--- NOTE | 2018-01-16 10:49 | EKG ---
Test Reason : Blood Pressure : / mmHG Vent. Rate : 114 BPM Atrial Rate : 114 BPM P-R Int : 128 ms QRS Dur : 070 ms QT Int : 296 ms P-R-T Axes : 056 041 020 degrees QTc Int : 407 ms Sinus tachycardia Otherwise normal ECG When compared with ECG of 23-MAY-2017 15:05, No significant change was found Confirmed by BASILIO WIGGINS ([id number]) on 01/16/2018 10:48:36 AM Referred By: NALDO Confirmed By:BASILIO WIGGINS
== END 2018-01-07 17:45 | disposition home health service (06) | DRG 331 ==
LOC: SURG A 01-03 08:09
PROVIDERS: ADMIT Surgery; ATTEND Surgery
PROC: 0DBG0ZZ Excision of Left Large Intestine, Open Approach (ICD-10-PCS; principal; 2018-01-03)
PROC: 0D1B0Z4 Bypass Ileum to Cutaneous, Open Approach (ICD-10-PCS; 2018-01-03)
PROC: 0DBL0ZZ Excision of Transverse Colon, Open Approach (ICD-10-PCS; 2018-01-03)
PROC: 0DJD4ZZ Inspection of Lower Intestinal Tract, Percutaneous Endoscopic Approach (ICD-10-PCS; 2018-01-03)
PROC: 3E0T3BZ Introduction of Anesthetic Agent into Peripheral Nerves and Plexi, Percutaneous Approach (ICD-10-PCS; 2018-01-03)
PROC: 3E0T33Z Introduction of Anti-inflammatory into Peripheral Nerves and Plexi, Percutaneous Approach (ICD-10-PCS; 2018-01-03)
DX: K57.92 Diverticulitis of intestine, part unspecified, without perforation or abscess without bleeding (principal); J30.2 Other seasonal allergic rhinitis; K57.20 Diverticulitis of large intestine with perforation and abscess without bleeding; M19.90 Unspecified osteoarthritis, unspecified site; R35.0 Frequency of micturition
CPT/HCPCS: 36415; 36416; 80048; 85025; 88307; 90471; 90732; 93005; 93010; G0009; J0131; J0670; J1100; J1170; J1650; J1885; J1956; J2001; J2250; J2405; J2704; J2765; J3010; S0020

== ENCOUNTER 2017-12-28 12:37 | Outpatient (CLI) | payer BC ==
[2017-12-28 14:01] LABS: Hemoglobin 12.9 g/dL (12.0-16.0); Mean Corpuscular HGB CONC 33.5 g/dL (32.0-36.0); Mean Corpuscular Hemoglobin 33.7 pg (27.0-31.0); Mean Platelet Volume 6.3 fL (7.4-10.4); Platelet Count 366 thou/uL (130-400); RBC Distribution Width 12.1 % (11.5-14.5); Red Blood Cell (RBC) Count 3.83 mill/uL (4.20-5.40); White Blood Cell (WBC) Count 8.4 thou/uL (4.8-10.8)
[2017-12-28 14:22] LABS: Anion Gap 13 mmol/L (10-20); BUN (Urea Nitrogen) 8 mg/dL (9.8-20.1); Calc. Creatinine Clearance 0 mL/min (70-130); Calcium 9.8 mg/dL (7.8-10.44); Carbon Dioxide 26 mmol/L (22-29); Chloride 107 mmol/L (98-107); Estimated GFR-MDRD Greater than 90; Glucose 144 mg/dL (70-105); Potassium 4.4 mmol/L (3.5-5.1); Sodium 142 mmol/L (136-145)
== END 2017-12-28 12:38 | disposition home or self-care (01) ==
LOC: LABBT 12:37
PROVIDERS: ATTEND Surgery
DX: Z01.810 Encounter for preprocedural cardiovascular examination (principal); Z01.812 Encounter for preprocedural laboratory examination; K57.92 Diverticulitis of intestine, part unspecified, without perforation or abscess without bleeding
CPT/HCPCS: 80048; 83036; 85027

== ENCOUNTER 2018-01-19 18:12 | Inpatient (IN) | payer BC ==
[2018-01-19 18:39] LABS: #Basophils 0.1 thou/uL (0.0-0.2); #Eosinphils 0.3 thou/uL (0.0-0.7); #Lymphocytes 3.3 thou/uL (1.20-3.40); #Monocytes 1.1 thou/uL (0.11-0.59); #Neutrophils 9.9 thou/uL (1.40-6.50); %Basophils 0.8 % (0.0-1.0); %Eosinophils 1.9 % (0.0-10.0); %Lymphocytes 22.6 % (21.0-51.0); %Monocytes 7.3 % (0.0-10.0); %Neutrophils 67.4 % (42.0-75.0); Hemoglobin 12.3 g/dL (12.0-16.0); Mean Corpuscular HGB CONC 33.9 g/dL (32.0-36.0); Mean Corpuscular Hemoglobin 33.7 pg (27.0-31.0); Mean Corpuscular Volume 99.4 fl (81.0-99.0); Mean Platelet Volume 5.8 fL (7.4-10.4); Platelet Count 612 thou/uL (130-400); Red Blood Cell (RBC) Count 3.66 mill/uL (4.20-5.40); White Blood Cell (WBC) Count 14.6 thou/uL (4.8-10.8)
[2018-01-19 18:42] LABS: Bilirubin Negative (Negative); Blood, Urine Moderate (Negative); Clarity CLEAR (Clear); Glucose, Urine (Dipstick) Negative (Negative); Leukocyte Moderate (Negative); Nitrite Negative (Negative); Protein, Urine (Dipstick) Negative (Neg-Trace); Specific Gravity, Urine 1.013 (1.002-1.036); Urobilinogen 0.2 mg/dL (0.2-1.0); pH, Urine 5.5 (5.0-9.0)
[2018-01-19 18:44] LABS: Bacteria/HPF None Seen HPF (None Seen); Hyaline Casts/LPF 0-3 HYALINE CAST LPF (0-3 Hyaline); Pathc Cast-AUWi Flag 0.27 (0-2.49); RBC/HPF 0-3 HPF (0-3); Squamous Epithelial 0-3 HPF (0-3)
[2018-01-19 19:00] LABS: ALT (SGPT) 9 U/L (8-55); AST (SGOT) 11 U/L (5-34); Albumin 4.2 g/dL (3.5-5.0); Alkaline Phosphatase 85 U/L (40-150); Anion Gap 14 mmol/L (10-20); BUN (Urea Nitrogen) 6 mg/dL (9.8-20.1); Bilirubin, Total 0.3 mg/dL (0.2-1.2); Calc. Creatinine Clearance 0 mL/min (70-130); Calcium 9.9 mg/dL (7.8-10.44); Carbon Dioxide 23 mmol/L (22-29); Chloride 102 mmol/L (98-107); Estimated GFR-MDRD Greater than 90; Globulin 3.4 g/dL (2.4-3.5); Glucose 99 mg/dL (70-105); Potassium 4.2 mmol/L (3.5-5.1); Protein, Total 7.6 g/dL (6.0-8.3); Sodium 135 mmol/L (136-145)
[2018-01-19] MEDS ORDERED: Ondansetron HCl/PF 4 MG/2 ML Vial ONE (20:48)
--- NOTE | 2018-01-19 21:42 | CT ---
CT ABDOMEN AND PELVIS WITH IV CONTRAST 01/19/18 Multiple axial tomograms were obtained through the abdomen and pelvis with IV enhancement. HISTORY: Abdominal pain. Recent colectomy with colostomy. Purulent vaginal discharge. Colostomy was placed due to diverticular abscess. FINDINGS: The lung bases are clear. Liver, spleen and pancreas unremarkable. Adrenal glands normal. Kidneys are unremarkable. Small corti dina cyst, subcentimeter, left upper pole kidney. Small bowel loops show nonspecific distention without dilatation. There is an apparent ileostomy in t he right abdomen. The colon is decompressed and there is no contrast in the colon. There is radiopaqu e suture in the deep pelvis at the rectosigmoid junction indicating an anastomosis. There is a circum scribed fluid dense collection at this site of the anastomosis which lies just anterior to the rectos igmoid anastomosis measuring 5 cm in width x 3.5 cm AP dimension. This would be consistent with a loc alized fluid or abscess collection. It also abuts the vaginal cuff. The patient is post hysterectomy. There may be a fistulous communicating with the vagina at this site given the history of purulent va ginal discharge. The bladder is contracted. There appears to be an open incision in the midline in the lower abdomen and there are numerous small gas pockets within the subcutaneous tissues just above the open incision which abuts the anterior ab dominal wall. There is a fluid dense collection present abutting the anterior abdominal wall measurin g approximately 2.0 cm which could represent localized small abscess. IMPRESSION: 1. Localized fluid dense collection of deep pelvis just anterior to the rectosigmoid anastomosis with measurements given above consistent with abscess. This abuts the vaginal cuff and there may be fistulous communication with the vagina given the history of purulent vaginal discharge. 2. An open skin incision in the midline in lower abdomen. There is underlying gas pockets in sub cutaneous tissues and a fluid dense collection abutting the anterior abdominal wall which could repre sent small fluid collection or abscess. POS: [facility]
[2018-01-19 22:57] LABS: Lactic Acid 0.9 mmol/L (0.5-2.2)
[2018-01-19] MEDS ORDERED: diphenhydrAMINE 50 MG/ML VIAL ONE (23:02)
[2018-01-19] MEDS ORDERED: methylPREDNISolone Sod Succ/PF 125 MG/2 ML VIAL ONE (23:02)
[2018-01-19] MEDS ORDERED: Famotidine/PF 20 mg/2ml Vial ONE (23:02)
[2018-01-19] MEDS ORDERED: Ondansetron HCl/PF 4 MG/2 ML Vial IVP PRN (23:50)
[2018-01-19] MEDS ORDERED: Ondansetron ODT 4 MG TAB SL PRN (23:50)
[2018-01-19] MEDS ORDERED: Morphine 5 MG/ML SYRINGE SLOW IVP PRN ×2 (23:53)
[2018-01-20] VITALS: BMI 23.6
[2018-01-20] MEDS: Sodium Chloride 0.9% 1,000 ML IV SCH ×2 (00:19→13:27)
[2018-01-20] MEDS ORDERED: Meropenem 1 GM in Syringe 20 ML SLOW IVP SCH (00:45)
[2018-01-20] MEDS ORDERED: traMADol HCl 50 MG TAB PO PRN ×3 (00:52→16:09)
[2018-01-20] MEDS ORDERED: Acetaminophen 500 MG TAB PO PRN (00:52)
[2018-01-20] MEDS: Ketorolac Tromethamine 30 MG/ML VIAL IVP PRN ×4 (01:07→22:08)
[2018-01-20] MEDS: traMADol HCl 50 MG TAB PO PRN ×2 (09:58→17:02)
[2018-01-20] MEDS ORDERED: SODIUM CHLORIDE 0.9% IVPB SCH (14:00)
[2018-01-20] MEDS ORDERED: ADMIXTURE FEE CHEMO IVPB SCH (14:00)
[2018-01-20] MEDS ORDERED: METRONIDAZOLE IVPB SCH (14:00)
--- NOTE | 2018-01-20 17:16 | HP ---
HISTORY OF PRESENT ILLNESS: Larissa Cleaning is a 57-year-old female with intractable diverticulitis who Dr. Casas saw and on 01/04/2018, she underwent laparoscopic converted to open resection of divertic ular phlegmon with low pelvic anastomosis and diverting loop ileostomy. The patient has had a prior hysterectomy. She states she presented to the emergency room last night, concerned about vaginal dis charge, which she has been experiencing for 2-3 days, initially seen more copious and she has had a p rior hysterectomy and she was concerned. She had a CAT scan in the emergency room last night demonst rating a fluid collection perianastomotic and just above her vaginal cuff about 5 x 3.5 cm. This is probably the etiology of the drainage. The patient, in addition, has a small opening in her lower in cision which he is packing with Nu Gauze wet to dry dressing. There is a wide mouth opening and wit h a small Nu Gauze packed within it. Tunnel cephalad. On the CAT scan, there appeared to be a small collection just beneath this about 2 cm. The patient denies having any fever, bowel function throug h her ileostomy has been normal. Dr. Casas has been given her some medications to slow her ileosto my output down. ALLERGIES: ADHESIVE TAPE, PENICILLIN, SULFA, VANCOMYCIN. MEDICATIONS: At home, hydrocodone, tramadol, Lomotil. PAST SURGICAL HISTORY: Laparoscopic converted to open, colon resection with anastomosis and divertin g protective ileostomy, hysterectomy, right rotator cuff surgery. PAST MEDICAL HISTORY: Recurrent diverticulitis and hyperlipidemia. SOCIAL HISTORY: Tobacco, she does smoke one-half to one pack a day and drinks alcohol socially. PHYSICAL EXAMINATION: GENERAL: The patient is in no distress. VITAL SIGNS: 5 feet tall, 121 pounds, 23 BMI. 97.2, 71, 118/68. HEENT: Unremarkable. LUNGS: Clear to auscultation. CARDIAC: Regular rate and rhythm without murmur or gallop. ABDOMEN: Soft, nontender. Ileostomy, right lower quadrant healthy. Midline wound well healed excep t in lower suprapubic area where there is about a 2.5 to 3 cm opening with quarter to half inch Nu Ga uze packed cephalad. This dressing was removed and gauze dressing applied demonstrated. EXTREMITIES: Unremarkable. ASSESSMENT AND PLAN: Intra-abdominal pelvic collection draining through the vaginal cuff. Draining through the vaginal cuff may suffice for drainage. Currently, she is not septic and she appears to b e doing well. From a GI standpoint, we will order a more regular diet or resume her regular diet. H er protective diverting ileostomy should suffice for her wound to divert the fecal stream and if she does have a small leak that should resolve nonoperatively with the current treatment. She was reassu red that operation is not necessary. Small open portion of her midline wound, continue wound care. Consideration for wound VAC could be d one, transportation is not a problem as she lives in [place] and both her and her were retired . They would not mind driving to the hospital 2-3 times a week to have a wound VAC applied or have the [facility]. The wound VAC is another option. Dr. Casas will return tomorrow and discuss these opt ions with her. Wound VAC to be applied tomorrow and outpatient arrangements made for home healthcare or outpatient [facility] wound care 2-3 times a week. I expect that she will be discharged home in the nex t 48 hours on oral antibiotics. She does state that she cannot tolerate oral antibiotics, and I am n ot certain that she needs any more. We will continue the antibiotics for now and let Dr. Casas dec [place] the treatment course tomorrow.
[2018-01-20] MEDS: Diphenoxylate HCl/Atropine Tablet PO SCH (20:24)
[2018-01-20] MEDS: metroNIDAZOLE 750 MG in Admixture Fee 1 EACH IVPB SCH (22:08)
[2018-01-21] MEDS: traMADol HCl 50 MG TAB PO PRN ×3 (00:07→15:10)
[2018-01-21] MEDS: metroNIDAZOLE 750 MG in Admixture Fee 1 EACH IVPB SCH ×2 (05:55→14:37)
[2018-01-21] MEDS: Ketorolac Tromethamine 30 MG/ML VIAL IVP PRN (06:01)
[2018-01-21] MEDS ORDERED: Ondansetron HCl/PF 4 MG/2 ML Vial IVP PRN (07:54)
[2018-01-21] MEDS ORDERED: Ondansetron ODT 4 MG TAB PO PRN (07:54)
[2018-01-21 08:37] VITALS: TEMP 97.5
[2018-01-21] MEDS: Diphenoxylate HCl/Atropine Tablet PO SCH ×2 (09:39→14:37)
--- NOTE | 2018-01-21 14:01 | PDOC.GSPN ---
Surgery Progress Note: Subj - Subjective Narrative: No pain or fever, tolerating regular diet Surgery Progress Note: Obj - Vital signs Vital signs: Vital Signs - Most Recent Temp Pulse Resp BP Pulse Ox 97.5 F L 71 16 111/65 98 01/21/18 10:54 01/21/18 10:54 01/21/18 10:54 01/21/18 10:54 01/21/18 10:54 - Physical Exam General: no distress Cardiovascular: regular rate and rhythm Respiratory: clear to auscultation Abdomen: soft, non tender, nondistended Surgery Progress Note: Results - Labs Result Diagrams: 01/19/18 18:31 01/19/18 18:31 Surgery Progress Note: A/P - Problem (1) Diverticulitis Current Visit: Yes Code(s): K57.92 - DVTRCLI OF INTEST, PART UNSP, W/O PERF OR ABSCESS W/O BLEED Status: Acute Assessment and Plan: small collection of fluid near anastamosis in pelvis. home on levaquin/flagyl. waiting for home vac to be set up
[2018-01-21 16:11] VITALS: BP 106/59
[2018-01-22 21:10] LABS: Chlamydia by PCR Not Detected (NotDetected); GC by PCR Not Detected (NotDetected)
== END 2018-01-21 16:55 | disposition home health service (06) | DRG 394 ==
LOC: ERS 18:12 → SURG A 23:47
PROVIDERS: ADMIT Specialist; ATTEND Specialist
DX: K91.89 Other postprocedural complications and disorders of digestive system (principal); T81.32XA Disruption of internal operation (surgical) wound, not elsewhere classified, initial encounter; F17.210 Nicotine dependence, cigarettes, uncomplicated; N89.8 Other specified noninflammatory disorders of vagina; E78.5 Hyperlipidemia, unspecified; Z90.49 Acquired absence of other specified parts of digestive tract; Z93.2 Ileostomy status; Z90.710 Acquired absence of both cervix and uterus
CPT/HCPCS: 36415; 74177; 80053; 81003; 81015; 83605; 85025; 87040; 87070; 87076; 87086; 87149; 87480; 87491; 87510; 87591; 87660; 96365; 96366; 96367; 96375; 99406; J1200; J1885; J1956; J2185; J2405; J2930; J3370; J7050; Q0162; S0028

== ENCOUNTER 2018-01-22 22:35 | Emergency (ER) | payer BC ==
[2018-01-22] MEDS ORDERED: Lorazepam 2 MG/ML VIAL ONE (22:56)
[2018-01-22 23:14] LABS: #Basophils 0.1 thou/uL (0.0-0.2); #Eosinphils 0.1 thou/uL (0.0-0.7); #Lymphocytes 3.1 thou/uL (1.20-3.40); #Monocytes 0.8 thou/uL (0.11-0.59); #Neutrophils 5.7 thou/uL (1.40-6.50); %Basophils 0.6 % (0.0-1.0); %Eosinophils 0.5 % (0.0-10.0); %Monocytes 7.9 % (0.0-10.0); Hemoglobin 11.8 g/dL (12.0-16.0); Mean Corpuscular Hemoglobin 32.4 pg (27.0-31.0); Mean Corpuscular Volume 95.3 fl (81.0-99.0); Mean Platelet Volume 5.8 fL (7.4-10.4); Platelet Count 558 thou/uL (130-400); RBC Distribution Width 12.7 % (11.5-14.5); Red Blood Cell (RBC) Count 3.64 mill/uL (4.20-5.40); White Blood Cell (WBC) Count 9.6 thou/uL (4.8-10.8)
[2018-01-22 23:19] LABS: pH, Arterial 7.59 (7.35-7.45)
[2018-01-22 23:20] LABS: Actual Bicarbonate (HCO3a) 17.3 mEq/L (22-26); Base Excess (BEa) -2.6 mEq/L (0 (+/-) 2.5); CO2 Tension 18.3 mmHg (35.0-45.0); Hematocrit-ABG 32.5 % (36.0-47.0); Hemoglobin (Hb) 10.6 g/dL (12.0-16.0); O2 Tension (PaO2) 96.3 mmHg (80.0-100.0)
[2018-01-22 23:21] LABS: Carboxyhemoglobin (COHb) 4.9 gm% (0.0-3.0)
[2018-01-22 23:22] LABS: Analyzer IN Cardio ER; Calcium, Ionized 1.2 mmol/L (1.12-1.30); Potassium - ABG Lab 3.2 mmol/L (3.70-5.30); Puncture Site RR
[2018-01-23 00:05] LABS: Bilirubin Negative (Negative); Blood, Urine Small (Negative); Clarity CLEAR (Clear); Glucose, Urine (Dipstick) Negative (Negative); Leukocyte Small (Negative); Nitrite Negative (Negative); Protein, Urine (Dipstick) Negative (Neg-Trace); Specific Gravity, Urine 1.007 (1.002-1.036); Urobilinogen 0.2 mg/dL (0.2-1.0); pH, Urine 7.5 (5.0-9.0)
[2018-01-23 00:07] LABS: Bacteria/HPF None Seen HPF (None Seen); Hyaline Casts/LPF 0-3 HYALINE CAST LPF (0-3 Hyaline); Pathc Cast-AUWi Flag 0.27 (0-2.49); RBC/HPF 0-3 HPF (0-3); Squamous Epithelial 0-3 HPF (0-3)
[2018-01-23 00:13] LABS: ALT (SGPT) 7 U/L (8-55); AST (SGOT) 7 U/L (5-34); Albumin 4.1 g/dL (3.5-5.0); Alkaline Phosphatase 69 U/L (40-150); Anion Gap 15 mmol/L (10-20); BUN (Urea Nitrogen) 4 mg/dL (9.8-20.1); Bilirubin, Total 0.4 mg/dL (0.2-1.2); Calc. Creatinine Clearance 0 mL/min (70-130); Calcium 9.9 mg/dL (7.8-10.44); Carbon Dioxide 20 mmol/L (22-29); Chloride 106 mmol/L (98-107); Estimated GFR-MDRD Greater than 90; Globulin 2.8 g/dL (2.4-3.5); Glucose 100 mg/dL (70-105); Potassium 3.4 mmol/L (3.5-5.1); Protein, Total 6.9 g/dL (6.0-8.3); Sodium 138 mmol/L (136-145)
--- NOTE | 2018-01-23 08:42 | RAD ---
ACUTE ABDOMINAL SERIES: Date: 01-23-18 History: Patient states she feels like she is unable to take a deep breath and has back pain as well as epigastric abdominal pain. FINDINGS: CHEST: Cardiac silhouette and pulmonary vasculature are within normal limits. The lungs are clear. Multiple anchor screws overlie the right humeral head. There has been no interval change compared to study on 12-17-16. UPRIGHT SUPINE VIEWS OF THE ABDOMEN: There is a nonspecific bowel gas pattern. No free intraperitoneal gas is seen beneath the hemidiaphra gms. Radiopaque suture material overlies the pelvis. Radiopaque catheter overlies the pelvis, which m ay be related to superpubic catheter. Right lower quadrant ostomy is noted. No suspicious calcificati ons are seen. Osseous structures are intact. IMPRESSION: 1. Nonspecific bowel gas pattern. 2. Post-surgical changes of the abdomen. 3. No acute cardiopulmonary process. POS: [facility]
--- NOTE | 2018-01-26 13:14 | EKG ---
Test Reason : SOB Blood Pressure : / mmHG Vent. Rate : 086 BPM Atrial Rate : 086 BPM P-R Int : 126 ms QRS Dur : 072 ms QT Int : 358 ms P-R-T Axes : 067 046 034 degrees QTc Int : 428 ms Normal sinus rhythm Normal ECG Confirmed by MILDRED PENA MD ([id number]), industrial editor TIMOTHY IGLESIAS ([id number]) on 01/26/2018 1:14:28 PM Referred By: Confirmed By:MILDRED PENA MD
== END 2018-01-23 01:35 | disposition home or self-care (01) ==
LOC: ERS 22:35
DX: R06.4 Hyperventilation (principal); E78.5 Hyperlipidemia, unspecified; F17.210 Nicotine dependence, cigarettes, uncomplicated
CPT/HCPCS: 74022; 80053; 81003; 81015; 82805; 85025; 93005; 96374; J2060

== ENCOUNTER 2018-02-20 07:31 | Outpatient (CLI) | payer BC ==
--- NOTE | 2018-02-20 11:46 | CT ---
CT OF THE ABDOMEN AND PELVIS WITH IV AND ENTERIC AND RECTAL CONTRAST: INDICATION: History of diverticulitis status post ileostomy and colon resection in December 2017. COMPARISON: Prior exam dated 01/19/18. FINDINGS: The previously seen peripherally enhancing fluid collection within the region of the cul-de-sac is no longer demonstrated. There is some mild inflammatory infiltration still remaining surrounding the r ectum and colorectal junction site. Anastomotic suture line appears intact at the colorectal junctio n. There is a right lower quadrant ileostomy without evidence of obstruction. Lung bases are clear. There are some areas of focal fatty infiltration near the falciform ligament within the liver which i s stable. The pancreas, adrenal glands, and spleen are normal-appearing. The kidneys are normal-appearing. There are mild vascular calcifications involving the abdominopelvic vasculature. No pathologically enlarged lymph nodes are evident. No definite acute osseous abnormality is evident. IMPRESSION: 1. Interval resolution of peripherally enhancing fluid collection seen within the pelvis adjacent to the colorectal anastomotic site on the prior exam dated 01/19/18. 2. Right lower quadrant ileostomy is stable. 3. Stable mild fatty infiltration near the falciform ligament within the liver. 4. Other chronic findings as above. POS: [facility]
[2018-02-20] MEDS ORDERED: Iopamidol 370 76% 100 ML VIAL ONE (12:25)
[2018-02-20] MEDS ORDERED: Iopamidol 370 76% 50 ML VIAL FS ONE (12:25)
== END 2018-02-20 07:32 | disposition home or self-care (01) ==
LOC: CT 07:31
PROVIDERS: ATTEND Surgery
DX: K57.92 Diverticulitis of intestine, part unspecified, without perforation or abscess without bleeding (principal); K76.0 Fatty (change of) liver, not elsewhere classified; Z93.2 Ileostomy status
CPT/HCPCS: 74177

== ENCOUNTER 2018-02-26 15:14 | Outpatient (CLI) | payer BC ==
[2018-02-26 16:04] LABS: #Basophils 0.1 thou/uL (0.0-0.2); #Eosinphils 0.1 thou/uL (0.0-0.7); #Lymphocytes 3.6 thou/uL (1.20-3.40); #Monocytes 0.7 thou/uL (0.11-0.59); #Neutrophils 4.2 thou/uL (1.40-6.50); %Basophils 0.9 % (0.0-1.0); %Eosinophils 1.6 % (0.0-10.0); %Lymphocytes 41.5 % (21.0-51.0); %Monocytes 7.9 % (0.0-10.0); %Neutrophils 48.1 % (42.0-75.0); Hemoglobin 13.9 g/dL (12.0-16.0); Mean Corpuscular HGB CONC 33.9 g/dL (32.0-36.0); Mean Corpuscular Hemoglobin 32.8 pg (27.0-31.0); Mean Corpuscular Volume 96.6 fl (81.0-99.0); Mean Platelet Volume 6.5 fL (7.4-10.4); Platelet Count 372 thou/uL (130-400); RBC Distribution Width 12.9 % (11.5-14.5); Red Blood Cell (RBC) Count 4.25 mill/uL (4.20-5.40); White Blood Cell (WBC) Count 8.7 thou/uL (4.8-10.8)
[2018-02-26 16:29] LABS: Anion Gap 14 mmol/L (10-20); BUN (Urea Nitrogen) 9 mg/dL (9.8-20.1); Calc. Creatinine Clearance 0 mL/min (70-130); Calcium 10.1 mg/dL (7.8-10.44); Carbon Dioxide 21 mmol/L (22-29); Chloride 109 mmol/L (98-107); Estimated GFR-MDRD 85; Glucose 109 mg/dL (70-105); Potassium 4.4 mmol/L (3.5-5.1); Sodium 140 mmol/L (136-145)
== END 2018-02-26 15:15 | disposition home or self-care (01) ==
LOC: LABBT 15:14
PROVIDERS: ATTEND Surgery
DX: Z01.812 Encounter for preprocedural laboratory examination (principal); K57.92 Diverticulitis of intestine, part unspecified, without perforation or abscess without bleeding
CPT/HCPCS: 80048; 85025

== ENCOUNTER 2018-02-26 15:30 | Inpatient (IN) | payer BC ==
[2018-02-26 15:32] VITALS: BMI 22.2
[2018-03-06] MEDS ORDERED: cefOXitin 2 GM, Syringe 1 ML in Sterile Water 10 ML SLOW IVP SCH (11:30)
[2018-03-06] MEDS ORDERED: Levofloxacin 500 mg/D5W 100 ml Premix Bag ONE (12:09)
[2018-03-06] MEDS ORDERED: Bupivacaine/Epinephrine 0.25% 30 ML VIAL ONE (12:44)
[2018-03-06] MEDS ORDERED: Midazolam HCl 2 mg/2 ml Vial ONE (12:46)
[2018-03-06] MEDS ORDERED: Fentanyl 100 MCG/2 ML VIAL ONE ×3 (12:54→14:19)
[2018-03-06] MEDS ORDERED: Promethazine HCl 25 MG/ML VIAL ONE (14:03)
[2018-03-06] MEDS ORDERED: Ondansetron HCl/PF 4 MG/2 ML Vial IVP PRN ×3 (14:07→15:37)
[2018-03-06] MEDS ORDERED: Promethazine HCl 25 MG/ML VIAL IM PRN ×3 (14:07→15:37)
[2018-03-06] MEDS ORDERED: Promethazine HCl 25 MG/ML VIAL SLOW IVP PRN (14:07)
[2018-03-06] MEDS ORDERED: HYDROmorphone 0.5 MG/0.5 ML SYRINGE ONE ×4 (14:43→15:21)
[2018-03-06] MEDS ORDERED: diphenhydrAMINE 50 MG/ML VIAL IM PRN (15:00)
[2018-03-06] MEDS ORDERED: Zolpidem Tartrate 5 MG TAB PO PRN (15:00)
[2018-03-06] MEDS ORDERED: diphenhydrAMINE 25 MG CAP PO PRN (15:00)
[2018-03-06] MEDS ORDERED: Naloxone HCl 0.4 mg/ml Vial IV PRN (15:00)
[2018-03-06] MEDS ORDERED: Ketorolac Tromethamine 30 MG/ML VIAL IVP PRN ×2 (15:00→15:37)
[2018-03-06] MEDS ORDERED: HYDROmorphone 10 mg/100 ml CADD IVPB PRN ×2 (15:00→16:02)
[2018-03-06] MEDS ORDERED: diphenhydrAMINE 50 MG/ML VIAL IVP PRN (15:00)
[2018-03-06] MEDS ORDERED: Communication Order-Pharmacy FS SCH (15:00)
[2018-03-06] MEDS ORDERED: hydrALAZINE 20 MG/ML VIAL SLOW IVP PRN (15:37)
[2018-03-06] MEDS ORDERED: Fentanyl 100 MCG/2 ML VIAL SLOW IVP PRN ×2 (15:37)
[2018-03-06] MEDS ORDERED: PROPOFOL 200 MG/20 ML VIAL ONE (15:55)
[2018-03-06] MEDS ORDERED: Lidocaine 1% PF 5 ML VIAL ONE (15:55)
[2018-03-06] MEDS ORDERED: Ketorolac Tromethamine 30 MG/ML VIAL ONE (15:55)
[2018-03-06] MEDS ORDERED: Glycopyrrolate 0.2 MG/ML 5 ML SYRINGE ONE (15:55)
[2018-03-06] MEDS ORDERED: Dexamethasone 20 MG/5 ML VIAL ONE (15:55)
[2018-03-06] MEDS ORDERED: Sodium Chloride 0.9% 1,000 ML IV SCH (16:15)
[2018-03-06] MEDS: D5 1/2 NS w/20 mEq KCL 1,000 ML IV SCH (16:35)
--- NOTE | 2018-03-06 18:38 | OP ---
DATE OF SURGERY: 03/06/2018 PREOPERATIVE DIAGNOSES: Ileostomy dysfunction and history of diverticulitis. POSTOPERATIVE DIAGNOSIS: Ileostomy dysfunction and history of diverticulitis. PROCEDURES PERFORMED: Ileostomy takedown with small bowel resection and anastomosis. SURGEON: Eugene Casas M.D. ANESTHESIA: General. ESTIMATED BLOOD LOSS: Minimal. COMPLICATIONS: None. SPECIMEN: Small intestine. TECHNIQUE: The patient was taken to the operating room and placed supine on the table. After genera l anesthetic was obtained, a Mariee was placed. The abdomen was prepped and draped in a sterile fashi on. Ileostomy mucosa and ileostomy site was ellipsed out. Cautery dissected down into the subcutane ous tissue along the loop ileostomy segment all the way to the fascia. The abdominal cavity was ente red. The small bowel loop was able to be brought up into the wound, then NIMESH-75 stapler was used to exclude and remove the skin segment on each side. The mesentery was taken using impact LigaSure. En terotomy was made on the antimesenteric surface of the bowel on each side. Then, a [id number] anas tomosis with a NIMESH-75 stapler. The common enterotomy was closed in two layers using 3-0 Vicryl tube as well as 3-0 serosal sutures, crotch stitch and the mesentery all closed using silk suture. No arline dence of ischemia to the staple line was placed back down into the abdominal cavity. The wound was i rrigated. Local anesthetic was applied. The surgeon and all staff changed gloves. Fascia was close d anterior and posteriorly using PDS suture. Skin was closed using causing a pursestring of Prolene and a Chary was left in the middle of the wound. The patient was en route to recovery in stable co ndition. All instrument counts, needle counts, lap counts are correct.
[2018-03-06] MEDS: Acetaminophen 1,000 MG in Premix Bag 1 BAG IVPB SCH (19:00)
[2018-03-06] MEDS: Famotidine 20 MG TAB PO SCH (20:35)
[2018-03-06] MEDS: Enoxaparin Sodium 40 MG/0.4 ML SYRINGE SC SCH (20:35)
[2018-03-06] MEDS: Famotidine/PF 20 mg/2ml Vial SLOW IVP SCH (20:35)
[2018-03-07] MEDS: Acetaminophen 1,000 MG in Premix Bag 1 BAG IVPB SCH ×3 (00:03→11:27)
[2018-03-07] MEDS: D5 1/2 NS w/20 mEq KCL 1,000 ML IV SCH ×2 (05:50→19:28)
[2018-03-07 08:14] LABS: #Lymphocytes 2.3 thou/uL (1.20-3.40); #Monocytes 1.1 thou/uL (0.11-0.59); #Neutrophils 6.7 thou/uL (1.40-6.50); %Basophils 0.4 % (0.0-1.0); %Lymphocytes 22.8 % (21.0-51.0); %Monocytes 10.6 % (0.0-10.0); %Neutrophils 66.2 % (42.0-75.0); Hemoglobin 11.8 g/dL (12.0-16.0); Mean Corpuscular HGB CONC 32.5 g/dL (32.0-36.0); Mean Corpuscular Hemoglobin 32.4 pg (27.0-31.0); Mean Corpuscular Volume 99.8 fl (81.0-99.0); Platelet Count 321 thou/uL (130-400); RBC Distribution Width 12.8 % (11.5-14.5); Red Blood Cell (RBC) Count 3.64 mill/uL (4.20-5.40); White Blood Cell (WBC) Count 10.1 thou/uL (4.8-10.8)
[2018-03-07 08:25] LABS: Anion Gap 14 mmol/L (10-20); BUN (Urea Nitrogen) 6 mg/dL (9.8-20.1); Calc. Creatinine Clearance 78 mL/min (70-130); Calcium 9.6 mg/dL (7.8-10.44); Carbon Dioxide 19 mmol/L (22-29); Chloride 102 mmol/L (98-107); Estimated GFR-MDRD Greater than 90; Glucose 101 mg/dL (70-105); Potassium 4.9 mmol/L (3.5-5.1); Sodium 130 mmol/L (136-145)
[2018-03-07] MEDS: Famotidine/PF 20 mg/2ml Vial SLOW IVP SCH ×2 (09:08→21:13)
[2018-03-07] MEDS: Famotidine 20 MG TAB PO SCH ×2 (09:33→21:12)
--- NOTE | 2018-03-07 12:37 | PDOC.GSPN ---
Surgery Progress Note: Subj - Subjective Narrative: complain of pain, controlled with blueprint developer, ambulating regularly Surgery Progress Note: Obj - Vital signs Vital signs: Vital Signs - Most Recent Temp Pulse Resp BP Pulse Ox 97.3 F L 59 L 18 142/88 H 100 03/07/18 07:12 03/07/18 11:47 03/07/18 11:47 03/07/18 11:47 03/07/18 11:47 - Physical Exam General: no distress Abdomen: soft, nondistended Wound: dressing clean,dry,intact Surgery Progress Note: Results - Labs Result Diagrams: 03/07/18 06:05 03/07/18 06:30 Lab results: Laboratory Results - last 24 hr 03/07/18 03/07/18 06:05 06:30 WBC 10.1 RBC 3.64 L Hgb 11.8 L Hct 36.4 MCV 99.8 H MCH 32.4 H MCHC 32.5 RDW 12.8 Plt Count 321 MPV 7.0 L Neutrophils % 66.2 Lymphocytes % 22.8 Monocytes % 10.6 H Eosinophils % 0.0 Basophils % 0.4 Neutrophils # 6.7 H Lymphocytes # 2.3 Monocytes # 1.1 H Eosinophils # 0.0 Basophils # 0.0 Sodium 130 L Potassium 4.9 Chloride 102 Carbon Dioxide 19 L Anion Gap 14 BUN 6 L Creatinine 0.65 Estimated GFR (MDRD) Greater than 90 Glucose 101 Calcium 9.6 Surgery Progress Note: A/P - Problem (1) Ileostomy dysfunction Current Visit: Yes Code(s): K94.13 - ENTEROSTOMY MALFUNCTION Status: Acute Assessment and Plan: pod 1 ileostomy reversal. fulls for dinner if no nausea
[2018-03-07] MEDS: Enoxaparin Sodium 40 MG/0.4 ML SYRINGE SC SCH (21:13)
[2018-03-08] MEDS: D5 1/2 NS w/20 mEq KCL 1,000 ML IV SCH ×2 (05:15→07:51)
[2018-03-08] MEDS: Famotidine/PF 20 mg/2ml Vial SLOW IVP SCH (08:53)
[2018-03-08] MEDS: Famotidine 20 MG TAB PO SCH (08:53)
[2018-03-08] MEDS ORDERED: HYDROcodone/Acetaminophen 10/325 mg Tablet PO PRN (09:44)
[2018-03-08] MEDS ORDERED: traMADol HCl 50 MG TAB PO PRN ×2 (09:44→09:59)
[2018-03-08] MEDS: traMADol HCl 50 MG TAB PO SCH ×2 (12:20→18:24)
[2018-03-08] MEDS: Acetaminophen 325 MG TAB PO SCH ×2 (12:20→18:23)
[2018-03-08] MEDS: HYDROcodone/Acetaminophen 10/325 mg Tablet PO PRN ×2 (13:07→18:24)
[2018-03-08 15:49] VITALS: BP 114/69; TEMP 98
== END 2018-03-08 19:50 | disposition home or self-care (01) | DRG 331 ==
LOC: SURG A 03-06 10:45 → SURG B 03-06 15:27
PROVIDERS: ADMIT Surgery; ATTEND Surgery
PROC: 0DBB0ZZ Excision of Ileum, Open Approach (ICD-10-PCS; principal; 2018-03-06)
DX: K94.13 Enterostomy malfunction (principal); M19.90 Unspecified osteoarthritis, unspecified site; Z79.899 Other long term (current) drug therapy
CPT/HCPCS: 80048; 85025; A4216; J0131; J0694; J1100; J1170; J1650; J1885; J1956; J2001; J2250; J2550; J2704; J3010

== ENCOUNTER 2021-03-05 11:50 | Emergency (ER) | payer BC ==
[2021-03-05 12:33] LABS: #Lymphocytes 1.5 thou/uL (1.20-3.40); #Monocytes 0.4 thou/uL (0.11-0.59); #Neutrophils 4.4 thou/uL (1.40-6.50); %Basophils 0.5 % (0.0-1.0); %Eosinophils 0.4 % (0.0-10.0); %Lymphocytes 23.3 % (21.0-51.0); %Monocytes 6.4 % (0.0-10.0); %Neutrophils 69.5 % (42.0-75.0); Hemoglobin 11.3 g/dL (12.0-16.0); Mean Corpuscular HGB CONC 34.5 g/dL (32.0-36.0); Mean Corpuscular Hemoglobin 35.3 pg (27.0-31.0); RBC Distribution Width 17.1 % (11.5-14.5); White Blood Cell (WBC) Count 6.4 thou/uL (4.8-10.8)
[2021-03-05] MEDS ORDERED: Iopamidol-370 76% 500 ML 1 ML ONE (12:38)
[2021-03-05 12:45] LABS: ALT (SGPT) 17 U/L (8-55); AST (SGOT) 17 U/L (5-34); Albumin 4.4 g/dL (3.5-5.0); Alkaline Phosphatase 81 U/L (40-110); Anion Gap 15 mmol/L (10-20); BUN (Urea Nitrogen) 9 mg/dL (9.8-20.1); Bilirubin, Total 0.8 mg/dL (0.2-1.2); Calc. Creatinine Clearance 0 mL/min (70-130); Calcium 9.5 mg/dL (7.8-10.44); Carbon Dioxide 20 mmol/L (22-29); Chloride 104 mmol/L (98-107); Globulin 3.2 g/dL (2.4-3.5); Glucose 109 mg/dL (70-105); Potassium 3.9 mmol/L (3.5-5.1); Protein, Total 7.6 g/dL (6.0-8.3); Sodium 135 mmol/L (136-145)
[2021-03-05] MEDS ORDERED: cefTRIAXone\\ROCEPHIN 2 GM VIAL ONE (12:50)
[2021-03-05] MEDS ORDERED: Ketorolac Tromethamine 30 MG/ML VIAL ONE (12:51)
[2021-03-05 12:53] LABS: Anisocytosis SLIGHT = 6-15 cells (100X) (0-5/hpf); Large Platelets SLIGHT; MDiff Complete? YES; Macrocytosis SLIGHT = 6-15 cells (100X) (0-5/hpf); Platelet Count 94 thou/uL (130-400); Platelet Morphology Comment Appears Decreased; Polychromasia SLIGHT = 2-3 cells (100X) (0-2/hpf)
[2021-03-05] MEDS ORDERED: Dexamethasone 4 mg/ml Vial ONE (14:36)
== END 2021-03-05 15:20 | disposition home or self-care (01) ==
LOC: ERS 11:50
DX: L03.211 Cellulitis of face (principal); E78.5 Hyperlipidemia, unspecified; E78.00 Pure hypercholesterolemia, unspecified; F17.210 Nicotine dependence, cigarettes, uncomplicated
CPT/HCPCS: 36415; 70487; 80053; 83605; 85025; 94760; 96365; 96375; J0696; J1100; J1885; Q9967

== ENCOUNTER 2021-04-20 14:52 | Inpatient (IN) | payer BC ==
[~2021-04-20 14:52] MED LIST changes: -ISOVUE-370 76%-LOCM 1 ML ONE; -Iopamidol 370 76% 50 ML VIAL FS ONE; +Iopamidol-370 76% 500 ML 1 ML ONE
[2021-04-20 15:31] LABS: #Monocytes 0.2 thou/uL (0.11-0.59); #Neutrophils 2.5 thou/uL (1.40-6.50); %Basophils 0.7 % (0.0-1.0); %Eosinophils 0.9 % (0.0-10.0); %Lymphocytes 41.7 % (21.0-51.0); %Monocytes 4.2 % (0.0-10.0); %Neutrophils 52.5 % (42.0-75.0); Hemoglobin 11.4 g/dL (12.0-16.0); Mean Corpuscular HGB CONC 33.8 g/dL (32.0-36.0); Mean Corpuscular Hemoglobin 34.5 pg (27.0-31.0); Mean Platelet Volume 10.5 fL (7.4-10.4); Platelet Count 100 thou/uL (130-400); White Blood Cell (WBC) Count 4.7 thou/uL (4.8-10.8)
[2021-04-20 15:53] LABS: ALT (SGPT) 20 U/L (8-55); AST (SGOT) 19 U/L (5-34); Albumin 4.4 g/dL (3.5-5.0); Alkaline Phosphatase 79 U/L (40-110); Anion Gap 13 mmol/L (10-20); BUN (Urea Nitrogen) 10 mg/dL (9.8-20.1); Calc. Creatinine Clearance 0 mL/min (70-130); Calcium 9.7 mg/dL (7.8-10.44); Carbon Dioxide 24 mmol/L (22-29); Chloride 107 mmol/L (98-107); Glucose 163 mg/dL (70-105); Protein, Total 7.4 g/dL (6.0-8.3); Sodium 140 mmol/L (136-145)
[2021-04-20 17:34] LABS: Bilirubin Negative (Negative); Blood, Urine Negative (Negative); Clarity Clear (Clear); Glucose, Urine (Dipstick) Normal (Negative); Ketone, Urine Negative (Negative); Leukocyte Negative Leu/uL (Negative); Nitrite Negative (Negative); Protein, Urine (Dipstick) Negative (Neg-Trace); Specific Gravity, Urine 1.024 (1.002-1.036)
[2021-04-20 20:26] LABS: Hemoglobin 10.2 g/dL (12.0-16.0); Mean Corpuscular HGB CONC 33.7 g/dL (32.0-36.0); Mean Corpuscular Hemoglobin 34.3 pg (27.0-31.0); Mean Platelet Volume 10.3 fL (7.4-10.4); Platelet Count 89 thou/uL (130-400); RBC Distribution Width 18.3 % (11.5-14.5); Red Blood Cell (RBC) Count 2.96 mill/uL (4.20-5.40); White Blood Cell (WBC) Count 4.9 thou/uL (4.8-10.8)
[2021-04-20 20:35] LABS: PTT 34.7 sec (22.9-36.1); Prothrombin Time 13.7 sec (12.0-14.7)
[2021-04-20] MEDS ORDERED: Pantoprazole 40 MG VIAL IVP SCH (21:45)
[2021-04-20] MEDS ORDERED: Sodium Chloride 0.9% (PF) 10 ML VIAL FS PRN (22:00)
[2021-04-20] MEDS ORDERED: GoLYTELY 4,000 ml Bottle PO SCH (22:30)
[2021-04-20] MEDS ORDERED: Sodium Chloride 0.9% 1,000 ML IV SCH (23:15)
[2021-04-20] MEDS ORDERED: Ondansetron PF 4 MG/2 ML Vial IVP PRN (23:15)
[2021-04-20] MEDS ORDERED: Ondansetron ODT 4 MG TAB SL PRN (23:15)
[2021-04-20 23:32] VITALS: BMI 27.6
[2021-04-20 23:50] LABS: Hemoglobin 9.3 g/dL (12.0-16.0)
[2021-04-21 01:57] LABS: #Lymphocytes 1.7 thou/uL (1.20-3.40); #Monocytes 0.4 thou/uL (0.11-0.59); #Neutrophils 3.8 thou/uL (1.40-6.50); %Basophils 0.3 % (0.0-1.0); %Eosinophils 0.6 % (0.0-10.0); %Lymphocytes 28.9 % (21.0-51.0); %Neutrophils 64.3 % (42.0-75.0); Hemoglobin 8.3 g/dL (12.0-16.0); Mean Corpuscular HGB CONC 33.6 g/dL (32.0-36.0); Mean Corpuscular Hemoglobin 34.5 pg (27.0-31.0); Mean Platelet Volume 9.5 fL (7.4-10.4); Platelet Count 89 thou/uL (130-400); RBC Distribution Width 18.3 % (11.5-14.5); White Blood Cell (WBC) Count 5.9 thou/uL (4.8-10.8)
[2021-04-21] MEDS: Sodium Chloride 0.9% 1,000 ML IV SCH ×2 (02:21→11:02)
[2021-04-21 03:30] LABS: #Lymphocytes 1.9 thou/uL (1.20-3.40); #Monocytes 0.3 thou/uL (0.11-0.59); #Neutrophils 3.8 thou/uL (1.40-6.50); %Basophils 0.1 % (0.0-1.0); %Eosinophils 0.5 % (0.0-10.0); %Lymphocytes 32.2 % (21.0-51.0); %Monocytes 4.3 % (0.0-10.0); %Neutrophils 62.8 % (42.0-75.0); Hemoglobin 8.1 g/dL (12.0-16.0); Mean Corpuscular HGB CONC 33.5 g/dL (32.0-36.0); Mean Corpuscular Hemoglobin 34.6 pg (27.0-31.0); Mean Platelet Volume 9.5 fL (7.4-10.4); Platelet Count 87 thou/uL (130-400); Red Blood Cell (RBC) Count 2.35 mill/uL (4.20-5.40)
[2021-04-21 03:36] LABS: SARS-CoV-2 NAA Rapid Test Not Detected (NotDetected)
[2021-04-21 03:48] LABS: Anion Gap 14 mmol/L (10-20); BUN (Urea Nitrogen) 10 mg/dL (9.8-20.1); Calc. Creatinine Clearance 92 mL/min (70-130); Calcium 8.6 mg/dL (7.8-10.44); Carbon Dioxide 21 mmol/L (22-29); Chloride 109 mmol/L (98-107); Glucose 121 mg/dL (70-105); Potassium 3.8 mmol/L (3.5-5.1); Sodium 140 mmol/L (136-145)
[2021-04-21 05:25] LABS: Hemoglobin 7.3 g/dL (12.0-16.0); Mean Corpuscular HGB CONC 32.5 g/dL (32.0-36.0); Mean Platelet Volume 9.5 fL (7.4-10.4); Platelet Count 87 thou/uL (130-400); RBC Distribution Width 18.2 % (11.5-14.5); Red Blood Cell (RBC) Count 2.14 mill/uL (4.20-5.40); White Blood Cell (WBC) Count 5.6 thou/uL (4.8-10.8)
[2021-04-21] MEDS ORDERED: Pantoprazole 40 MG VIAL IVP SCH (09:00)
[2021-04-21] MEDS ORDERED: PROPOFOL 200 MG/20 ML VIAL ONE (09:07)
[2021-04-21 11:22] LABS: Hemoglobin 8.3 g/dL (12.0-16.0)
[2021-04-21] MEDS ORDERED: Chloraseptic Spray 180 ml Bottle PO PRN (15:40)
[2021-04-21 16:32] LABS: Hemoglobin 7.8 g/dL (12.0-16.0)
[2021-04-22 04:00] LABS: #Basophils 0.1 thou/uL (0.0-0.2); #Monocytes 0.2 thou/uL (0.11-0.59); #Neutrophils 1.9 thou/uL (1.40-6.50); %Basophils 1.2 % (0.0-1.0); %Eosinophils 0.5 % (0.0-10.0); %Lymphocytes 47.5 % (21.0-51.0); %Monocytes 5.8 % (0.0-10.0); Hemoglobin 7.1 g/dL (12.0-16.0); Mean Corpuscular HGB CONC 33.6 g/dL (32.0-36.0); Mean Corpuscular Hemoglobin 34.2 pg (27.0-31.0); Mean Platelet Volume 9.5 fL (7.4-10.4); Platelet Count 73 thou/uL (130-400); RBC Distribution Width 16.9 % (11.5-14.5); Red Blood Cell (RBC) Count 2.07 mill/uL (4.20-5.40); White Blood Cell (WBC) Count 4.2 thou/uL (4.8-10.8)
[2021-04-22 04:13] LABS: ALT (SGPT) 15 U/L (8-55); AST (SGOT) 12 U/L (5-34); Alkaline Phosphatase 48 U/L (40-110); Anion Gap 9 mmol/L (10-20); BUN (Urea Nitrogen) 4 mg/dL (9.8-20.1); Bilirubin, Total 0.6 mg/dL (0.2-1.2); Calc. Creatinine Clearance 95 mL/min (70-130); Calcium 8.3 mg/dL (7.8-10.44); Carbon Dioxide 24 mmol/L (22-29); Chloride 111 mmol/L (98-107); Glucose 92 mg/dL (70-105); Potassium 3.6 mmol/L (3.5-5.1); Sodium 140 mmol/L (136-145)
[2021-04-22 11:10] LABS: Hemoglobin 8.9 g/dL (12.0-16.0); Platelet Count 78 thou/uL (130-400)
[2021-04-23] MEDS: Acetaminophen 325 MG TAB PO PRN ×5 (00:18→21:39)
[2021-04-23 07:16] LABS: #Lymphocytes 2.1 thou/uL (1.20-3.40); #Monocytes 0.3 thou/uL (0.11-0.59); %Basophils 0.2 % (0.0-1.0); %Eosinophils 0.5 % (0.0-10.0); %Lymphocytes 47.5 % (21.0-51.0); %Monocytes 6.9 % (0.0-10.0); %Neutrophils 44.8 % (42.0-75.0); Hemoglobin 8.2 g/dL (12.0-16.0); Mean Corpuscular HGB CONC 34.4 g/dL (32.0-36.0); Mean Corpuscular Hemoglobin 33.8 pg (27.0-31.0); Mean Corpuscular Volume 98.4 fL (78.0-98.0); Mean Platelet Volume 9.2 fL (7.4-10.4); Platelet Count 76 thou/uL (130-400); RBC Distribution Width 17.8 % (11.5-14.5); Red Blood Cell (RBC) Count 2.41 mill/uL (4.20-5.40); White Blood Cell (WBC) Count 4.4 thou/uL (4.8-10.8)
[2021-04-23 07:22] LABS: Anion Gap 9 mmol/L (10-20); BUN (Urea Nitrogen) 5 mg/dL (9.8-20.1); Calc. Creatinine Clearance 89 mL/min (70-130); Calcium 8.6 mg/dL (7.8-10.44); Carbon Dioxide 24 mmol/L (22-29); Chloride 113 mmol/L (98-107); Glucose 88 mg/dL (70-105); Potassium 3.6 mmol/L (3.5-5.1); Sodium 142 mmol/L (136-145)
[2021-04-23] MEDS ORDERED: Saccharomyces boulardii 250 MG CAP PO SCH (14:00)
[2021-04-24 06:17] LABS: #Lymphocytes 1.6 thou/uL (1.20-3.40); #Monocytes 0.2 thou/uL (0.11-0.59); #Neutrophils 1.9 thou/uL (1.40-6.50); %Basophils 0.3 % (0.0-1.0); %Eosinophils 0.8 % (0.0-10.0); %Lymphocytes 42.4 % (21.0-51.0); %Monocytes 6.2 % (0.0-10.0); %Neutrophils 50.4 % (42.0-75.0); Hemoglobin 8.1 g/dL (12.0-16.0); Mean Corpuscular HGB CONC 32.5 g/dL (32.0-36.0); Mean Corpuscular Hemoglobin 32.1 pg (27.0-31.0); Mean Corpuscular Volume 98.7 fL (78.0-98.0); Mean Platelet Volume 8.8 fL (7.4-10.4); Platelet Count 86 thou/uL (130-400); RBC Distribution Width 17.6 % (11.5-14.5); Red Blood Cell (RBC) Count 2.52 mill/uL (4.20-5.40); White Blood Cell (WBC) Count 3.8 thou/uL (4.8-10.8)
[2021-04-24] MEDS: Acetaminophen 325 MG TAB PO PRN ×2 (08:51→19:56)
[2021-04-24] MEDS: Saccharomyces boulardii 250 MG CAP PO SCH (08:52)
[2021-04-24] MEDS: Lidocaine Viscous Sol 2% 15 ml UD Cup SSW SCH ×2 (10:02→20:45)
[2021-04-24] MEDS: metroNIDAZOLE 500 MG TAB PO SCH ×3 (10:02→19:54)
[2021-04-25] MEDS: Acetaminophen 325 MG TAB PO PRN (01:49)
[2021-04-25 05:29] LABS: Platelet Count 97 thou/uL (130-400)
[2021-04-25 07:56] VITALS: BP 132/68; TEMP 98
[2021-04-25] MEDS: metroNIDAZOLE 500 MG TAB PO SCH (08:47)
[2021-04-25] MEDS: Saccharomyces boulardii 250 MG CAP PO SCH (08:47)
[2021-04-25] MEDS: Lidocaine Viscous Sol 2% 15 ml UD Cup SSW SCH (08:49)
== END 2021-04-25 11:24 | disposition home or self-care (01) | DRG 371 ==
LOC: ERS 14:52 → IMCU/EMU 20:18 → SURG B 04-23 20:02
PROVIDERS: ADMIT Student in an Organized Health Care Education/Training Program; ATTEND Family Medicine
PROC: 0DBH8ZZ Excision of Cecum, Via Natural or Artificial Opening Endoscopic (ICD-10-PCS; principal; 2021-04-21)
PROC: 0DBE8ZX Excision of Large Intestine, Via Natural or Artificial Opening Endoscopic, Diagnostic (ICD-10-PCS; 2021-04-21)
PROC: 30233N1 Transfusion of Nonautologous Red Blood Cells into Peripheral Vein, Percutaneous Approach (ICD-10-PCS; 2021-04-21)
PROC: 0DB68ZX Excision of Stomach, Via Natural or Artificial Opening Endoscopic, Diagnostic (ICD-10-PCS; 2021-04-21)
DX: A04.72 Enterocolitis due to Clostridium difficile, not specified as recurrent (principal); K57.31 Diverticulosis of large intestine without perforation or abscess with bleeding; D62 Acute posthemorrhagic anemia; K22.10 Ulcer of esophagus without bleeding; D61.818 Other pancytopenia; K52.1 Toxic gastroenteritis and colitis; E78.5 Hyperlipidemia, unspecified; T36.91XA Poisoning by unspecified systemic antibiotic, accidental (unintentional), initial encounter; F10.10 Alcohol abuse, uncomplicated; K29.80 Duodenitis without bleeding; K86.89 Other specified diseases of pancreas; Z20.822 Contact with and (suspected) exposure to COVID-19; D69.59 Other secondary thrombocytopenia; D12.0 Benign neoplasm of cecum; F17.210 Nicotine dependence, cigarettes, uncomplicated; Z88.1 Allergy status to other antibiotic agents; Z88.2 Allergy status to sulfonamides; Z88.0 Allergy status to penicillin; Z90.710 Acquired absence of both cervix and uterus; Z90.49 Acquired absence of other specified parts of digestive tract; Z98.890 Other specified postprocedural states; Z71.6 Tobacco abuse counseling
CPT/HCPCS: 36415; 36430; 74177; 78278; 80048; 80053; 81003; 82274; 83605; 83690; 85014; 85018; 85025; 85049; 85610; 85730; 86850; 86900; 86901; 87324; 87449; 87493; 88305; A9604; J2405; J2704; P9016; Q0162; Q9967; U0002; U0005

== ENCOUNTER 2021-12-07 13:01 | Day surgery (SDC) | payer BC ==
[2021-12-07] MEDS ORDERED: Sodium Chloride 0.9% 10 ML ONE (13:17)
[2021-12-07] MEDS ORDERED: Acetaminophen 500 MG TAB PO SCH (14:15)
[2021-12-07] MEDS ORDERED: diphenhydrAMINE 25 MG CAP PO SCH (14:15)
[2021-12-07] MEDS ORDERED: diphenhydrAMINE 25 MG CAP ONE (14:29)
[2021-12-07] MEDS ORDERED: Acetaminophen 500 MG TAB ONE (14:29)
[2021-12-07 15:46] VITALS: TEMP 97.8
[2021-12-07 15:57] VITALS: BP 134/63
[2021-12-07 17:03] LABS: Anisocytosis SLIGHT = 6-15 cells (100X) (0-5/hpf); Eosinophils 1 % (0-10); Hemoglobin 7.6 g/dL (12.0-16.0); Lymphocytes 81 % (21-51); MDiff Complete? YES; Mean Corpuscular HGB CONC 32.7 g/dL (32.0-36.0); Mean Platelet Volume 4.9 fL (7.4-10.4); Monocytes 4 % (0-10); Neutrophil 14 % (42-75); Ovalocytes SLIGHT = 2-5 cells (100X) (0-1/hpf); Platelet Count 63 thou/uL (130-400); Platelet Morphology Comment Appears Decreased; Polychromasia SLIGHT = 2-3 cells (100X) (0-2/hpf); RBC Distribution Width 19.1 % (11.5-14.5); Red Blood Cell (RBC) Count 2.36 mill/uL (4.20-5.40); Stomatocytes SLIGHT = 2-5 cells (100X) (0-1/hpf); Tear Drops SLIGHT = 2-5 cells (100X) (0-1/hpf); White Blood Cell (WBC) Count 1.8 thou/uL (4.8-10.8)
== END 2021-12-07 16:33 | disposition home or self-care (01) ==
LOC: ONC/OP 13:01
PROVIDERS: ATTEND Internal Medicine Hematology & Oncology
PROC: 30233R1 Transfusion of Nonautologous Platelets into Peripheral Vein, Percutaneous Approach (ICD-10-PCS; principal; 2021-12-07)
DX: D69.6 Thrombocytopenia, unspecified (principal); D64.9 Anemia, unspecified; Z79.899 Other long term (current) drug therapy; Z88.0 Allergy status to penicillin; Z88.1 Allergy status to other antibiotic agents; Z88.2 Allergy status to sulfonamides; Z91.048 Other nonmedicinal substance allergy status
CPT/HCPCS: 36430; 85025; 86850; 86900; 86901; P9035

== ENCOUNTER 2022-01-03 09:57 | Day surgery (SDC) | payer BC ==
[2022-01-03] MEDS ORDERED: Acetaminophen 500 MG TAB ONE (10:15)
[2022-01-03] MEDS ORDERED: Sodium Chloride 0.9% 10 ML ONE ×2 (10:15)
[2022-01-03] MEDS ORDERED: diphenhydrAMINE 25 MG CAP ONE (10:15)
[2022-01-03 15:29] VITALS: BP 123/60; TEMP 98.1
== END 2022-01-03 15:29 | disposition home or self-care (01) ==
LOC: ONC/OP 09:57
PROVIDERS: ATTEND Internal Medicine Hematology & Oncology
PROC: 30233R1 Transfusion of Nonautologous Platelets into Peripheral Vein, Percutaneous Approach (ICD-10-PCS; principal; 2022-01-03)
PROC: 30233N1 Transfusion of Nonautologous Red Blood Cells into Peripheral Vein, Percutaneous Approach (ICD-10-PCS; principal; 2022-01-03)
DX: D64.9 Anemia, unspecified (principal); D69.6 Thrombocytopenia, unspecified; Z88.0 Allergy status to penicillin; Z88.1 Allergy status to other antibiotic agents; Z88.2 Allergy status to sulfonamides; Z91.048 Other nonmedicinal substance allergy status
CPT/HCPCS: 36430; 86850; 86900; 86901; P9016; P9035

== ENCOUNTER 2022-01-20 08:12 | Day surgery (SDC) | payer BC ==
[2022-01-20] MEDS ORDERED: diphenhydrAMINE 25 MG CAP ONE (08:43)
[2022-01-20] MEDS ORDERED: Acetaminophen 500 MG TAB ONE (08:44)
[2022-01-20 13:48] VITALS: BP 118/53; TEMP 97.9
== END 2022-01-20 13:48 | disposition home or self-care (01) ==
LOC: ONC/OP 08:12
PROVIDERS: ATTEND Internal Medicine Hematology & Oncology
PROC: 30233N1 Transfusion of Nonautologous Red Blood Cells into Peripheral Vein, Percutaneous Approach (ICD-10-PCS; principal; 2022-01-20)
DX: D64.9 Anemia, unspecified (principal); Z88.0 Allergy status to penicillin; Z88.1 Allergy status to other antibiotic agents; Z88.2 Allergy status to sulfonamides; Z91.048 Other nonmedicinal substance allergy status
CPT/HCPCS: 36430; 86850; 86900; 86901; P9016

== ENCOUNTER 2022-06-21 20:42 | Inpatient (IN) | payer BC ==
[2022-06-21] MEDS ORDERED: Acetaminophen 500 MG TAB ONE (21:36)
[2022-06-21] MEDS ORDERED: Ondansetron PF 4 MG/2 ML Vial ONE (21:36)
[2022-06-21] MEDS ORDERED: Morphine 4 MG/ML VIAL ONE (21:36)
[2022-06-21 21:48] LABS: Bilirubin Negative (Negative); Blood, Urine Negative (Negative); Clarity Clear (Clear); Glucose, Urine (Dipstick) Normal (Negative); Ketone, Urine Negative (Negative); Leukocyte Negative Leu/uL (Negative); Nitrite Negative (Negative); Protein, Urine (Dipstick) Negative (Neg-Trace); Specific Gravity, Urine 1.011 (1.002-1.036); Urobilinogen Normal mg/dL (Less than 2); pH, Urine 6.5 (5.0-9.0)
[2022-06-21 21:50] LABS: Hemoglobin 10.6 g/dL (12.0-16.0); Mean Corpuscular HGB CONC 34.8 g/dL (32.0-36.0); Mean Corpuscular Hemoglobin 37.4 pg (27.0-31.0); RBC Distribution Width 15.6 % (11.5-14.5); Red Blood Cell (RBC) Count 2.82 mill/uL (4.20-5.40); White Blood Cell (WBC) Count 0.8 thou/uL (4.8-10.8)
[2022-06-21 21:51] LABS: #Lymphocytes 0.3 thou/uL (1.20-3.40); #Neutrophils 0.4 thou/uL (1.40-6.50); %Basophils 1.7 % (0.0-1.0); %Lymphocytes 43.1 % (21.0-51.0); %Monocytes 0.2 % (0.0-10.0)
[2022-06-21 22:00] LABS: ALT (SGPT) 28 U/L (8-55); AST (SGOT) 26 U/L (5-34); Albumin 3.9 g/dL (3.4-4.8); Alkaline Phosphatase 80 U/L (40-110); Anion Gap 17 mmol/L (10-20); BUN (Urea Nitrogen) 8 mg/dL (9.8-20.1); Bilirubin, Total 0.6 mg/dL (0.2-1.2); CK (CPK) 25 U/L (29-168); Calc. Creatinine Clearance 0 mL/min (70-130); Calcium 9.4 mg/dL (7.8-10.44); Carbon Dioxide 22 mmol/L (23-31); Chloride 108 mmol/L (98-107); Estimated GFR 73; Globulin 2.2 g/dL (2.4-3.5); Glucose 110 mg/dL (80-115); Magnesium 1.8 mg/dL (1.6-2.6); Potassium 4.8 mmol/L (3.5-5.1); Protein, Total 6.1 g/dL (5.8-8.1); Sodium 142 mmol/L (136-145)
[2022-06-21 22:09] LABS: Mean Platelet Volume 7.2 fL (7.4-10.4); Platelet Count 108 thou/uL (130-400); Platelet Morphology Comment Appears Decreased
[2022-06-21] MEDS ORDERED: Fentanyl 100 MCG/2 ML VIAL ONE (22:10)
[2022-06-21 22:30] LABS: CKMB 0.9 ng/mL (0-6.6)
[2022-06-21 23:23] LABS: SARS-CoV-2 NAA Rapid Test Not Detected (NotDetected)
[2022-06-22] MEDS ORDERED: Cefepime 2 GM VIAL ONE (00:20)
[2022-06-22 00:33] LABS: Lactic Acid 1.5 mmol/L (0.5-2.2)
[2022-06-22 01:26] LABS: Troponin I 0.016 ng/mL (< 0.028)
[2022-06-22] MEDS ORDERED: Meropenem 1 GM in Sodium Chloride 0.9% 100 ML IVPB SCH (01:45)
[2022-06-22 02:58] VITALS: BMI 28.0
[2022-06-22 04:38] LABS: Troponin I Less than 0.010 ng/mL (< 0.028)
[2022-06-22] MEDS ORDERED: Acetaminophen 325 MG TAB PO PRN (05:13)
[2022-06-22] MEDS ORDERED: Ondansetron PF 4 MG/2 ML Vial IVP PRN (05:13)
[2022-06-22] MEDS: HYDROcodone/Acetaminophen 7.5/325 mg Tablet PO PRN ×2 (05:37→21:00)
[2022-06-22 07:34] LABS: Hemoglobin 8.6 g/dL (12.0-16.0); Mean Corpuscular Hemoglobin 36.9 pg (27.0-31.0); Mean Platelet Volume 7.4 fL (7.4-10.4); Platelet Count 91 thou/uL (130-400); RBC Distribution Width 15.7 % (11.5-14.5); Red Blood Cell (RBC) Count 2.34 mill/uL (4.20-5.40); White Blood Cell (WBC) Count 2.8 thou/uL (4.8-10.8)
[2022-06-22 07:35] LABS: #Lymphocytes 0.7 thou/uL (1.20-3.40); #Monocytes 0.1 thou/uL (0.11-0.59); %Basophils 0.4 % (0.0-1.0); %Eosinophils 0.1 % (0.0-10.0); %Lymphocytes 23.9 % (21.0-51.0); %Neutrophils 70.6 % (42.0-75.0)
[2022-06-22 07:45] LABS: Anion Gap 11 mmol/L (10-20); BUN (Urea Nitrogen) 8 mg/dL (9.8-20.1); Calc. Creatinine Clearance 79 mL/min (70-130); Carbon Dioxide 23 mmol/L (23-31); Chloride 111 mmol/L (98-107); Estimated GFR 88; Glucose 93 mg/dL (80-115); Potassium 4.1 mmol/L (3.5-5.1); Sodium 141 mmol/L (136-145)
[2022-06-22 07:46] LABS: MDiff Complete? YES; Macrocytosis SLIGHT = 6-15 cells (100X) (0-5/hpf); Platelet Morphology Comment Appears Decreased; Polychromasia SLIGHT = 2-3 cells (100X) (0-2/hpf)
[2022-06-22] MEDS: Meropenem 1 GM in Sodium Chloride 0.9% 100 ML IVPB SCH ×2 (10:22→18:26)
[2022-06-23] MEDS: Meropenem 1 GM in Sodium Chloride 0.9% 100 ML IVPB SCH ×2 (02:12→10:12)
[2022-06-23] MEDS: HYDROcodone/Acetaminophen 7.5/325 mg Tablet PO PRN (04:18)
[2022-06-23 04:37] LABS: #Monocytes 0.1 thou/uL (0.11-0.59); #Neutrophils 1.5 thou/uL (1.40-6.50); %Basophils 0.5 % (0.0-1.0); %Eosinophils 0.3 % (0.0-10.0); %Lymphocytes 39.7 % (21.0-51.0); %Monocytes 3.7 % (0.0-10.0); %Neutrophils 55.8 % (42.0-75.0); Hemoglobin 9.7 g/dL (12.0-16.0); Mean Corpuscular HGB CONC 34.5 g/dL (32.0-36.0); Mean Corpuscular Hemoglobin 37.2 pg (27.0-31.0); Mean Platelet Volume 7.4 fL (7.4-10.4); Platelet Count 105 thou/uL (130-400); RBC Distribution Width 15.3 % (11.5-14.5); White Blood Cell (WBC) Count 2.6 thou/uL (4.8-10.8)
[2022-06-23 04:41] LABS: Anion Gap 13 mmol/L (10-20); BUN (Urea Nitrogen) 7 mg/dL (9.8-20.1); Calc. Creatinine Clearance 88 mL/min (70-130); Calcium 9.3 mg/dL (7.8-10.44); Carbon Dioxide 21 mmol/L (23-31); Chloride 110 mmol/L (98-107); Estimated GFR 99; Glucose 102 mg/dL (80-115); Potassium 3.9 mmol/L (3.5-5.1); Sodium 140 mmol/L (136-145)
[2022-06-23] MEDS ORDERED: Saccharomyces boulardii 250 MG CAP PO SCH (09:00)
[2022-06-23] MEDS ORDERED: Cholecalciferol 1,000 UNITS (25 MCG) TAB PO SCH (09:00)
[2022-06-23] MEDS ORDERED: Non-Formulary Item 1 EACH (Cholecalciferol (Vitamin D3) [Vitamin D] 1000 UNIT Capsule) PO SCH (09:00)
[2022-06-23 11:26] VITALS: BP 156/70; TEMP 99.3
== END 2022-06-23 14:18 | disposition home or self-care (01) | DRG 809 ==
LOC: ERS 20:42 → 2NO 06-22 01:22
PROVIDERS: ADMIT Internal Medicine; ATTEND Internal Medicine
DX: D70.1 Agranulocytosis secondary to cancer chemotherapy (principal); Z66 Do not resuscitate; Z20.822 Contact with and (suspected) exposure to COVID-19; E87.2 Acidosis; D61.818 Other pancytopenia; D46.9 Myelodysplastic syndrome, unspecified; M54.9 Dorsalgia, unspecified; T45.1X5A Adverse effect of antineoplastic and immunosuppressive drugs, initial encounter; E78.5 Hyperlipidemia, unspecified; G89.29 Other chronic pain; K76.0 Fatty (change of) liver, not elsewhere classified; F17.210 Nicotine dependence, cigarettes, uncomplicated; R50.81 Fever presenting with conditions classified elsewhere; Z88.1 Allergy status to other antibiotic agents; Z88.5 Allergy status to narcotic agent; Z88.0 Allergy status to penicillin; Z88.2 Allergy status to sulfonamides; Z88.8 Allergy status to other drugs, medicaments and biological substances; Z91.09 Other allergy status, other than to drugs and biological substances; Z79.899 Other long term (current) drug therapy; Z98.890 Other specified postprocedural states; Z90.710 Acquired absence of both cervix and uterus; Z82.49 Family history of ischemic heart disease and other diseases of the circulatory system
CPT/HCPCS: 36415; 71045; 74177; 80048; 80053; 81003; 82550; 82553; 83605; 83735; 84443; 84484; 85025; 87040; 87086; 93005; 96361; 96365; 96366; 96375; J0692; J1956; J2185; J2270; J2405; J3010; J3490; Q9967

== ENCOUNTER 2022-07-07 13:46 | Emergency (ER) | payer BC ==
[2022-07-07] MEDS ORDERED: Fentanyl 100 MCG/2 ML VIAL ONE (14:45)
[2022-07-07 15:11] LABS: Hemoglobin 8.4 g/dL (12.0-16.0); Mean Corpuscular Hemoglobin 37.2 pg (27.0-31.0); Mean Platelet Volume 10.1 fL (7.4-10.4); Platelet Count 29 thou/uL (130-400); RBC Distribution Width 14.9 % (11.5-14.5); Red Blood Cell (RBC) Count 2.27 mill/uL (4.20-5.40); White Blood Cell (WBC) Count 1.3 thou/uL (4.8-10.8)
[2022-07-07 15:22] LABS: ALT (SGPT) 13 U/L (8-55); AST (SGOT) 16 U/L (5-34); Alkaline Phosphatase 90 U/L (40-110); Anion Gap 15 mmol/L (10-20); BUN (Urea Nitrogen) 7 mg/dL (9.8-20.1); Bilirubin, Total 0.6 mg/dL (0.2-1.2); CRP (Inflammatory) 10.33 mg/dL (= or < 0.5); Calc. Creatinine Clearance 0 mL/min (70-130); Calcium 9.7 mg/dL (7.8-10.44); Carbon Dioxide 22 mmol/L (23-31); Chloride 105 mmol/L (98-107); Estimated GFR 99; Globulin 2.7 g/dL (2.4-3.5); Glucose 79 mg/dL (80-115); Potassium 3.7 mmol/L (3.5-5.1); Protein, Total 6.7 g/dL (5.8-8.1); Sodium 138 mmol/L (136-145)
[2022-07-07 15:26] LABS: Lymphocytes 64 % (21-51); MDiff Complete? YES; Macrocytosis SLIGHT = 6-15 cells (100X) (0-5/hpf); Monocytes 4 % (0-10); Neutrophil 12 % (42-75); Nucleated RBC 1 % (0); Platelet Morphology Comment Appears Decreased; Polychromasia SLIGHT = 2-3 cells (100X) (0-2/hpf); Reactive Lymphocytes 20 % (0-10)
== END 2022-07-07 16:09 | disposition home or self-care (01) ==
LOC: ERS 13:46
DX: M79.18 Myalgia, other site (principal); M25.50 Pain in unspecified joint; I10 Essential (primary) hypertension; E78.5 Hyperlipidemia, unspecified; E78.00 Pure hypercholesterolemia, unspecified; F17.210 Nicotine dependence, cigarettes, uncomplicated
CPT/HCPCS: 36415; 80053; 85025; 86140; 96374; J3010

== ENCOUNTER 2022-07-12 08:59 | Day surgery (SDC) | payer BC ==
[2022-07-12 09:47] VITALS: BP 144/67; TEMP 98.5
== END 2022-07-12 09:30 | disposition short-term general hospital (02) ==
LOC: ONC/OP 08:59
PROVIDERS: ATTEND Nurse Practitioner Family
PROC: 30233N1 Transfusion of Nonautologous Red Blood Cells into Peripheral Vein, Percutaneous Approach (ICD-10-PCS; principal; 2022-07-12)
DX: D64.9 Anemia, unspecified (principal); D69.6 Thrombocytopenia, unspecified; Z88.0 Allergy status to penicillin; Z88.1 Allergy status to other antibiotic agents; Z88.2 Allergy status to sulfonamides; Z88.5 Allergy status to narcotic agent; Z91.048 Other nonmedicinal substance allergy status
CPT/HCPCS: 36415; 36430; 71045; 71275; 80053; 83615; 83735; 83880; 84443; 84484; 84550; 85025; 85060; 85379; 85384; 85610; 85730; 86850; 86900; 86901; 87040; 93005; 94760; 99212; G0463; J3010; P9016; P9035; U0002